=== PATIENT | female | born 1940 | race Caucasian/White ===

== ENCOUNTER 2023-02-17 19:03 | Inpatient (IN) | payer OTHER, MEDICAID ==
[~2023-02-17] VITALS: Ht 162.6 cm; Wt 83.5 kg
[2023-02-17 19:03] VITALS: BP_SYST 114; PULSE 38; RESP 20; TEMP 97.3; O2SAT 98
[~2023-02-17 19:03] MED LIST: ALBMDI INH; APIX2.5T PO; BISA-79 PO; DEC4 PO; DILT30TA35 PO; DOCU-144 PO; GUAI-723 PO; INSU100V SQ; INSU100V9 SQ; LEVO-62 PO; LEVO25TA2 PO; LYR25 PO; METO25TA6 PO; MOM PO; SENN8.6T19 PO; TRAZ-251 PO; VITD400 PO
[2023-02-17] MEDS ORDERED: cefTRIAXone 1 GM IVPB PREMIX 50 ML IV ONE (19:15)
[2023-02-17] MEDS ORDERED: NS 1000 ML IV.SOLN IV ONE (19:15)
[2023-02-17 20:09] LABS: HEMATOCRIT 39.5 % (36-48); HEMOGLOBIN 12.6 g/dL (12.0-16.0); MEAN CORPUSCULAR HEMOGLOBIN 30 pg (27-31); MEAN CORPUSCULAR HGB CONC 32 % (32-36); MEAN CORPUSCULAR VOLUME 94 fL (79.0-98.0); PLATELET COUNT (AUTO) 70 K/uL (130-430); RED BLOOD CELL COUNT(AUTO) 4.19 MIL/uL (4.2-6.2); RED CELL DISTRIBUTION WIDTH 18.5 % (9.0-15.0); WHITE BLOOD COUNT (AUTO) 3.1 K/uL (4.8-10.8)
[2023-02-17 20:24] LABS: ALANINE AMINOTRANSFERASE 8 U/L (12-78); ALBUMIN 3.3 g/dL (3.4-4.8); ANION GAP 5 (5-15); ASPARTATE AMINOTRANSFERASE 26 U/L (10-37); CALCIUM 8.5 mg/dL (8.4-11.0); CARBON DIOXIDE 28 mmol/L (23-29); CHLORIDE 94 mmol/L (98-107); CREATININE 4.13 mg/dL (0.55-1.30); GLUCOSE 130 mg/dL (74-106); SODIUM SERUM 127 mmol/L (136-145); TOTAL BILIRUBIN 0.8 mg/dL (0.0-1.0); TOTAL PROTEIN, SERUM 8.2 g/dL (6.4-8.3); UREA NITROGEN, BLOOD 97 mg/dL (8-21)
[2023-02-17 20:29] LABS: POTASSIUM 7.6 mmol/L (3.5-5.1)
[2023-02-17] MEDS ORDERED: ATROPINE SULFATE 1 MG/10 ML SYRINGE IVP ONE (20:30)
[2023-02-17] MEDS ORDERED: CALCIUM CHLORIDE 1 GM/10 ML DISP.SYRIN (14 mEq Ca++/SYR) IV ONE (20:30)
[2023-02-17] MEDS ORDERED: SODIUM ZIRCONIUM CYCLOSILICATE 10 GM POWD.PACK PO ONE (20:30)
[2023-02-17] MEDS ORDERED: CALCIUM CHLORIDE 1 GM/10ML VIAL (13.6 mEq Ca++/VIAL) IV ONE (20:30)
[2023-02-17 21:08] LABS: ANION GAP 6 (5-15); CALCIUM 8.1 mg/dL (8.4-11.0); CARBON DIOXIDE 27 mmol/L (23-29); CHLORIDE 96 mmol/L (98-107); CREATININE 4.09 mg/dL (0.55-1.30); GLUCOSE 133 mg/dL (74-106); SODIUM SERUM 129 mmol/L (136-145); UREA NITROGEN, BLOOD 92 mg/dL (8-21)
[2023-02-17 21:34] LABS: ANISOCYTOSIS 1+; BAND % (MANUAL) 3 % (0-6); BASOPHILS % (MANUAL) 0 % (0-2); EOSINOPHILS % (MANUAL) 2 % (0-7); LYMPHOCYTES % (MANUAL) 12 % (20-46); MONOCYTES % (MANUAL) 11 % (0-11); PLATELET ESTIMATE DECREASED (ADEQUATE)
[2023-02-17 21:35] LABS: OVALOCYTES MODERATE; TARGET CELLS FEW; TEAR DROP CELLS FEW
[2023-02-17] MEDS ORDERED: FURO40TA5 PO (21:52)
[2023-02-17] MEDS ORDERED: GABA-529 PO (21:52)
[2023-02-17] MEDS ORDERED: NALOXONE HCL 0.4 MG/ML AMP (NARCAN) IVP PRN ×2 (22:00)
[2023-02-17] MEDS ORDERED: SODIUM POLYSTYRENE SULFONATE 15 GM/60 ML UDBTL PO ONE (22:00)
[2023-02-17] MEDS ORDERED: MAGNESIUM SULFATE 50 ML IV PRN (22:00)
[2023-02-17] MEDS ORDERED: ZOLPIDEM TARTRATE 5 MG TABLET PO PRN (22:00)
[2023-02-17] MEDS ORDERED: MORPHINE 2 MG/ML INJ. SYRINGE IVP PRN ×2 (22:00)
[2023-02-17] MEDS ORDERED: DEXTROSE 50% JECT 50 ML DISP.SYRIN IVP PRN (22:00)
[2023-02-17] MEDS ORDERED: DOCUSATE SODIUM 100 MG CAPSULE PO PRN (22:00)
[2023-02-17] MEDS ORDERED: LORazepam 2 MG/ML VIAL IVP PRN (22:00)
[2023-02-17] MEDS ORDERED: MUPIROCIN 2% TOPICAL OINTMENT 22 GM NS PRN (22:00)
[2023-02-17] MEDS ORDERED: POTASSIUM CHLORIDE 20 MEQ TAB.PRT.SR PO PRN (22:00)
[2023-02-17] MEDS ORDERED: ALBUTEROL MDI INHALATION 8 GM INH INH PRN (22:00)
[2023-02-17] MEDS ORDERED: ACETAMINOPHEN 325 MG TABLET PO PRN (22:00)
[2023-02-17] MEDS ORDERED: ONDANSETRON HCL 4 MG/2 ML VIAL IVP PRN (22:00)
[2023-02-17] MEDS ORDERED: ACET325T PO (22:15)
[2023-02-17] MEDS ORDERED: ACET-73 PO (22:16)
[2023-02-17] MEDS ORDERED: AMIO200T66 PO (22:16)
[2023-02-17] MEDS ORDERED: LEVO75TA7 PO (22:18)
[2023-02-17] MEDS: FUROSEMIDE 40 MG/4 ML VIAL IVP SCH (22:18)
[2023-02-17] MEDS ORDERED: PEG15DRO12 EACH EYE (22:20)
[2023-02-18] VITALS (8 sets, daily range): BP systolic 110–136; PULSE 35–52; RESP 16–20; TEMP 96.8–98.2; O2SAT 92–97
[2023-02-18] MEDS ORDERED: traZODone HCL 50 MG TABLET (DESYREL) PO PRN
[2023-02-18 04:49] LABS: HEMOGLOBIN A1C 6.92 % (<5.7)
[2023-02-18 04:53] LABS: BASOPHILS # (AUTO) 0.1 K/uL (0.0-0.2); BASOPHILS % (AUTO) 1.9 % (0.0-2.0); EOSINOPHILS % (AUTO) 0.9 % (0.0-4.0); HEMATOCRIT 38.7 % (36-48); HEMOGLOBIN 12.2 g/dL (12.0-16.0); LYMPHOCYTES # (AUTO) 0.4 K/uL (1.0-5.5); LYMPHOCYTES % (AUTO) 13.1 % (20.5-51.5); MEAN CORPUSCULAR HEMOGLOBIN 30 pg (27-31); MEAN CORPUSCULAR HGB CONC 32 % (32-36); MEAN CORPUSCULAR VOLUME 95 fL (79.0-98.0); MONOCYTES # (AUTO) 0.4 K/uL (0.0-1.0); NEUTROPHILS # (AUTO) 2.1 K/uL (1.8-7.7); NEUTROPHILS % (AUTO) 71.1 % (40.0-70.0); PLATELET COUNT (AUTO) 57 K/uL (130-430); RED BLOOD CELL COUNT(AUTO) 4.09 MIL/uL (4.2-6.2); RED CELL DISTRIBUTION WIDTH 18.4 % (9.0-15.0); WHITE BLOOD COUNT (AUTO) 2.9 K/uL (4.8-10.8)
[2023-02-18 05:03] LABS: ANION GAP 9 (5-15); CALCIUM 8.8 mg/dL (8.4-11.0); CARBON DIOXIDE 26 mmol/L (23-29); CHLORIDE 95 mmol/L (98-107); CREATININE 4.27 mg/dL (0.55-1.30); GLUCOSE 128 mg/dL (74-106); SODIUM SERUM 130 mmol/L (136-145); UREA NITROGEN, BLOOD 91 mg/dL (8-21)
[2023-02-18 05:18] LABS: POTASSIUM 6.3 mmol/L (3.5-5.1)
[2023-02-18] MEDS ORDERED: SODIUM POLYSTYRENE SULFONATE 15 GM/60 ML UDBTL PO ONE ×2 (06:45→07:15)
[2023-02-18] MEDS ORDERED: SODIUM ZIRCONIUM CYCLOSILICATE 10 GM POWD.PACK PO ONE ×2 (07:15→15:00)
[2023-02-18] MEDS ORDERED: ALBUTEROL SULFATE 0.083% 2.5 MG/3 ML VIAL.NEB INH PRN (07:15)
[2023-02-18] MEDS: FUROSEMIDE 40 MG/4 ML VIAL IVP SCH (08:03)
[2023-02-18] MEDS ORDERED: APIXABAN 2.5 MG TABLET PO SCH (09:00)
[2023-02-18 11:56] LABS: BLOOD GAS PH 7.271 (7.350-7.450)
[2023-02-18 11:57] LABS: ABG O2 SAT% ESTIMATE 89.4 % (94.0-100.0); ALLEN'S TEST POSITIVE (P); BLOOD GAS HCO3 24.7 mmol/L (21.0-27.0); BLOOD GAS PCO2 54.9 mmHg (35.0-45.0); BLOOD GAS PO2 64.5 mmHg (75.0-100.0)
[2023-02-18 13:54] LABS: ANION GAP 4 (5-15); CALCIUM 8.7 mg/dL (8.4-11.0); CARBON DIOXIDE 29 mmol/L (23-29); CHLORIDE 98 mmol/L (98-107); CREATININE 4.32 mg/dL (0.55-1.30); FREE T4 (FREE THYROXINE) 0.8 ng/dl (0.8-1.5); GLUCOSE 146 mg/dL (74-106); SODIUM SERUM 131 mmol/L (136-145); THYROID STIMULATING HORMONE 14.78 uIu/mL (0.36-3.74); UREA NITROGEN, BLOOD 91 mg/dL (8-21)
[2023-02-18] MEDS ORDERED: ROPI0.5T4 PO (17:02)
[2023-02-18] MEDS ORDERED: FLUTICASONE PROPIONATE 50 mCg/SPRAY 16 GM NS ONE (18:30)
[2023-02-18] MEDS: FLUTICASONE PROPIONATE 50 mCg/SPRAY 16 GM NS SCH (20:25)
[2023-02-18] MEDS: roPINIRole HCL 0.25 MG ( REQUIP )TABLET PO SCH (20:26)
[2023-02-18] MEDS: traZODone HCL 50 MG TABLET (DESYREL) PO SCH (20:27)
[2023-02-18] MEDS ORDERED: THEOPHYLLINE ANHYDROUS 200 MG CAP.ER.24H PO SCH (21:00)
[2023-02-19] VITALS (8 sets, daily range): BP systolic 100–123; PULSE 47–53; RESP 13–18; TEMP 97.1–98.8; O2SAT 94–100
[2023-02-19 05:21] LABS: BASOPHILS % (AUTO) 1.3 % (0.0-2.0); EOSINOPHILS # (AUTO) 0.1 K/uL (0.0-0.4); EOSINOPHILS % (AUTO) 2.8 % (0.0-4.0); HEMATOCRIT 38.7 % (36-48); HEMOGLOBIN 12.2 g/dL (12.0-16.0); LYMPHOCYTES # (AUTO) 0.4 K/uL (1.0-5.5); LYMPHOCYTES % (AUTO) 15.3 % (20.5-51.5); MEAN CORPUSCULAR HEMOGLOBIN 30 pg (27-31); MEAN CORPUSCULAR HGB CONC 32 % (32-36); MEAN CORPUSCULAR VOLUME 96 fL (79.0-98.0); MONOCYTES # (AUTO) 0.4 K/uL (0.0-1.0); MONOCYTES % (AUTO) 14.5 % (1.7-9.3); NEUTROPHILS # (AUTO) 1.8 K/uL (1.8-7.7); NEUTROPHILS % (AUTO) 66.1 % (40.0-70.0); PLATELET COUNT (AUTO) 53 K/uL (130-430); RED BLOOD CELL COUNT(AUTO) 4.05 MIL/uL (4.2-6.2); WHITE BLOOD COUNT (AUTO) 2.7 K/uL (4.8-10.8)
[2023-02-19 05:30] LABS: ANION GAP 7 (5-15); CALCIUM 8.3 mg/dL (8.4-11.0); CARBON DIOXIDE 30 mmol/L (23-29); CHLORIDE 99 mmol/L (98-107); CREATININE 4.15 mg/dL (0.55-1.30); GLUCOSE 113 mg/dL (74-106); POTASSIUM 5.1 mmol/L (3.5-5.1); SODIUM SERUM 136 mmol/L (136-145); UREA NITROGEN, BLOOD 87 mg/dL (8-21)
[2023-02-19 05:35] LABS: ALANINE AMINOTRANSFERASE 3 U/L (12-78); ALBUMIN 3.2 g/dL (3.4-4.8); ASPARTATE AMINOTRANSFERASE 17 U/L (10-37); CHOLESTEROL 133 mg/dL (<200); HDL CHOLESTEROL 78 mg/dL (>55); LIPASE 32 U/L (73-393); TOTAL BILIRUBIN 0.7 mg/dL (0.0-1.0); TOTAL PROTEIN, SERUM 7.4 g/dL (6.4-8.3); TRIGLYCERIDES 60 mg/dL (30-150)
[2023-02-19] MEDS: LEVOTHYROXINE SODIUM 0.1 MG TABLET PO SCH (08:35)
[2023-02-19] MEDS: roPINIRole HCL 0.25 MG ( REQUIP )TABLET PO SCH ×4 (08:36→21:37)
[2023-02-19] MEDS: FLUTICASONE PROPIONATE 50 mCg/SPRAY 16 GM NS SCH ×2 (08:38→21:00)
[2023-02-19] MEDS: FUROSEMIDE 40 MG/4 ML VIAL IVP SCH (09:00)
[2023-02-19 09:49] LABS: BLOOD GAS PH 7.311 (7.350-7.450)
[2023-02-19 09:50] LABS: ABG O2 SAT% ESTIMATE 92.1 % (94.0-100.0); ALLEN'S TEST POSITIVE (P); BLOOD GAS BASE EXCESS 0.2 mmol/L (-3.0-3.0); BLOOD GAS HCO3 27.7 mmol/L (21.0-27.0); BLOOD GAS PCO2 56.1 mmHg (35.0-45.0); BLOOD GAS PO2 69.4 mmHg (75.0-100.0)
[2023-02-19] MEDS: INSULIN LISPRO SLIDING SCALE 100 UNITS/ML, 3 ML VIAL (humaLOG) SUBCUT PRN ×2 (12:25→21:38)
[2023-02-19] MEDS: THEOPHYLLINE ANHYDROUS 80 MG/15 ML UDC PO SCH ×2 (12:30→21:36)
[2023-02-19] MEDS: traZODone HCL 50 MG TABLET (DESYREL) PO SCH (21:36)
[2023-02-20 01:19] VITALS: BP_SYST 148; PULSE 55; RESP 18; TEMP 98.6; O2SAT 92
[2023-02-20 05:52] LABS: BASOPHILS % (AUTO) 1.2 % (0.0-2.0); EOSINOPHILS # (AUTO) 0.1 K/uL (0.0-0.4); EOSINOPHILS % (AUTO) 2.1 % (0.0-4.0); HEMATOCRIT 38.8 % (36-48); HEMOGLOBIN 12.3 g/dL (12.0-16.0); LYMPHOCYTES # (AUTO) 0.4 K/uL (1.0-5.5); LYMPHOCYTES % (AUTO) 13.3 % (20.5-51.5); MEAN CORPUSCULAR HEMOGLOBIN 30 pg (27-31); MEAN CORPUSCULAR HGB CONC 32 % (32-36); MEAN CORPUSCULAR VOLUME 94 fL (79.0-98.0); MONOCYTES # (AUTO) 0.4 K/uL (0.0-1.0); NEUTROPHILS # (AUTO) 2.2 K/uL (1.8-7.7); NEUTROPHILS % (AUTO) 71.4 % (40.0-70.0); PLATELET COUNT (AUTO) 62 K/uL (130-430); RED BLOOD CELL COUNT(AUTO) 4.11 MIL/uL (4.2-6.2); RED CELL DISTRIBUTION WIDTH 18.4 % (9.0-15.0)
[2023-02-20] MEDS: LEVOTHYROXINE SODIUM 0.1 MG TABLET PO SCH (06:01)
[2023-02-20 06:49] LABS: ALANINE AMINOTRANSFERASE 4 U/L (12-78); ANION GAP 7 (5-15); ASPARTATE AMINOTRANSFERASE 17 U/L (10-37); CALCIUM 8.5 mg/dL (8.4-11.0); CARBON DIOXIDE 31 mmol/L (23-29); CHLORIDE 97 mmol/L (98-107); CREATININE 3.94 mg/dL (0.55-1.30); GLUCOSE 110 mg/dL (74-106); POTASSIUM 4.8 mmol/L (3.5-5.1); SODIUM SERUM 135 mmol/L (136-145); TOTAL BILIRUBIN 0.6 mg/dL (0.0-1.0); TOTAL PROTEIN, SERUM 7.3 g/dL (6.4-8.3); UREA NITROGEN, BLOOD 82 mg/dL (8-21)
[2023-02-20 08:00] VITALS: BP_SYST 116; PULSE 67; RESP 18; TEMP 97.5; O2SAT 97
[2023-02-20] MEDS: roPINIRole HCL 0.25 MG ( REQUIP )TABLET PO SCH (08:40)
[2023-02-20] MEDS: THEOPHYLLINE ANHYDROUS 80 MG/15 ML UDC PO SCH (08:40)
[2023-02-20] MEDS: FUROSEMIDE 40 MG/4 ML VIAL IVP SCH (08:40)
[2023-02-20] MEDS: FLUTICASONE PROPIONATE 50 mCg/SPRAY 16 GM NS SCH (08:45)
[2023-02-20 11:02] VITALS: BP_SYST 118; PULSE 66; RESP 18; TEMP 97.7; O2SAT 95
[2023-02-20 11:05] VITALS: BP_SYST 126; PULSE 64; RESP 16; TEMP 97.6; O2SAT 94
[2023-02-20 11:37] VITALS: BP_SYST 126; PULSE 64; RESP 16; TEMP 97.6; O2SAT 94
== END 2023-02-20 12:10 | DRG 291 ==
LOC: SED 19:03 → STU 21:30
PROVIDERS: ADMIT General Practice; ATTEND General Practice
DX: I13.0 Hypertensive heart and chronic kidney disease with heart failure and stage 1 through stage 4 chronic kidney disease, or unspecified chronic kidney disease (principal); I50.43 Acute on chronic combined systolic (congestive) and diastolic (congestive) heart failure; J96.00 Acute respiratory failure, unspecified whether with hypoxia or hypercapnia; E87.1 Hypo-osmolality and hyponatremia; N17.9 Acute kidney failure, unspecified; N18.4 Chronic kidney disease, stage 4 (severe); I48.20 Chronic atrial fibrillation, unspecified; I42.9 Cardiomyopathy, unspecified; R00.1 Bradycardia, unspecified; D69.6 Thrombocytopenia, unspecified; E03.9 Hypothyroidism, unspecified; E11.42 Type 2 diabetes mellitus with diabetic polyneuropathy; I25.10 Atherosclerotic heart disease of native coronary artery without angina pectoris; I36.1 Nonrheumatic tricuspid (valve) insufficiency; E87.5 Hyperkalemia; E66.9 Obesity, unspecified; I27.20 Pulmonary hypertension, unspecified; E11.22 Type 2 diabetes mellitus with diabetic chronic kidney disease; E11.65 Type 2 diabetes mellitus with hyperglycemia; Z79.4 Long term (current) use of insulin; Z79.01 Long term (current) use of anticoagulants; Z87.01 Personal history of pneumonia (recurrent); Z86.16 Personal history of COVID-19; Z68.31 Body mass index [BMI] 31.0-31.9, adult
CPT/HCPCS: 36415; 36600; 71045; 76770; 80048; 80053; 80061; 82800-TC; 82803; 82962; 83037; 83605; 83690; 83735; 83880; 84439; 84443; 84484; 85007; 85025; 85027; 86162; 87040; 87081; 93005; 93306; 94760; 96365; 96375; 99285; G0378; J0461; J0696; J1940; J2270; J2405; J7030; J7613

== ENCOUNTER 2023-10-30 17:10 | Inpatient (IN) | payer OTHER, MEDICAID ==
[~2023-10-30] VITALS: Ht 170.2 cm; Wt 69.4 kg
[~2023-10-30 17:10] MED LIST changes: +ACET-73 PO; +ACET325T PO; +AMIO200T66 PO; -APIX2.5T PO; -DILT30TA35 PO; +FURO40TA5 PO; +GABA-529 PO; +LEVO75TA7 PO; -METO25TA6 PO; +PEG15DRO12 EACH EYE; +ROPI0.5T37 PO
[2023-10-30 17:37] VITALS: BP_SYST 105; PULSE 65; RESP 18; TEMP 99.8; O2SAT 97
[2023-10-30] MEDS ORDERED: HYDR-4037 PO (18:45)
[2023-10-30] MEDS ORDERED: FURO-149 PO (18:45)
[2023-10-30] MEDS ORDERED: APIX2.5T PO (18:45)
[2023-10-30] MEDS ORDERED: METO-442 PO (18:45)
[2023-10-30] MEDS ORDERED: THEO300T45 PO (18:45)
[2023-10-30] MEDS ORDERED: LORA-259 PO (18:45)
[2023-10-30] MEDS ORDERED: INSU100V SUBCUT (18:45)
[2023-10-30] MEDS ORDERED: HYDR-3917 PO (18:45)
[2023-10-30] MEDS ORDERED: LEVO125T PO (18:45)
[2023-10-30] MEDS ORDERED: ISO10 PO (18:45)
[2023-10-30 19:00] LABS: BASOPHILS % (AUTO) 0.5 % (0.0-2.0); HEMATOCRIT 35.7 % (36-48); HEMOGLOBIN 12.3 g/dL (12.0-16.0); LYMPHOCYTES # (AUTO) 0.7 K/uL (1.0-5.5); LYMPHOCYTES % (AUTO) 7.8 % (20.5-51.5); MEAN CORPUSCULAR HEMOGLOBIN 31 pg (27-31); MEAN CORPUSCULAR HGB CONC 34 % (32-36); MEAN CORPUSCULAR VOLUME 90 fL (79.0-98.0); MONOCYTES # (AUTO) 0.8 K/uL (0.0-1.0); MONOCYTES % (AUTO) 8.9 % (1.7-9.3); NEUTROPHILS # (AUTO) 7.3 K/uL (1.8-7.7); NEUTROPHILS % (AUTO) 82.8 % (40.0-70.0); PLATELET COUNT (AUTO) 106 K/uL (130-430); RED BLOOD CELL COUNT(AUTO) 3.98 MIL/uL (4.2-6.2); RED CELL DISTRIBUTION WIDTH 13.3 % (9.0-15.0); WHITE BLOOD COUNT (AUTO) 8.8 K/uL (4.8-10.8)
[2023-10-30] MEDS: NACL 0.9% 1,000 ML IV ONE (19:12)
[2023-10-30 19:15] LABS: ALBUMIN 2.8 g/dL (3.4-4.8); ANION GAP 4 (5-15); ASPARTATE AMINOTRANSFERASE 20 U/L (10-37); CALCIUM 9.1 mg/dL (8.4-11.0); CARBON DIOXIDE 32 mmol/L (23-29); CHLORIDE 94 mmol/L (98-107); CREATININE 3.34 mg/dL (0.55-1.30); GLUCOSE 183 mg/dL (74-106); INR 1.2 (0.8-1.2); SODIUM SERUM 130 mmol/L (136-145); TOTAL BILIRUBIN 0.6 mg/dL (0.0-1.0); TOTAL PROTEIN, SERUM 9.6 g/dL (6.4-8.3); UREA NITROGEN, BLOOD 89 mg/dL (8-21)
[2023-10-30 19:18] LABS: BILIRUBIN,DIRECT 0.2 mg/dL (0.0-0.3)
[2023-10-30 19:29] LABS: ALANINE AMINOTRANSFERASE 14 U/L (12-78)
[2023-10-30 20:41] LABS: INFLUENZA TYPE A Negative (NEGATIVE); INFLUENZA TYPE B NEGATIVE (NEGATIVE)
[2023-10-30 20:43] LABS: COVID19 ANTIGEN SOFIA FIA NEGATIVE (NEGATIVE)
[2023-10-30] MEDS: NORMAL SALINE 5 ML DISP.SYRIN IVF SCH (22:00)
[2023-10-30] MEDS ORDERED: METOPROLOL TARTRATE 25 MG TABLET ONE (22:44)
[2023-10-30] MEDS ORDERED: cloNIDine HCL 0.1 MG TABLET ONE (22:44)
[2023-10-30] MEDS ORDERED: METOPROLOL SUCCINATE 25 MG TAB.SR.24H (TOPROL XL) PO SCH (22:45)
[2023-10-30] MEDS: cloNIDine HCL 0.1 MG TABLET PO PRN (22:55)
[2023-10-30] MEDS ORDERED: DILTIAZEM HCL 30 MG TABLET ONE (23:22)
[2023-10-30] MEDS: dilTIAZem HCL IVP 5 MG/ML VIAL IVP ONE (23:30)
[2023-10-31 00:31] VITALS: BP_SYST 148; PULSE 158; RESP 20; TEMP 99.3; O2SAT 96
[2023-10-31 07:31] LABS: BASOPHILS % (AUTO) 0.1 % (0.0-2.0); HEMATOCRIT 35.2 % (36-48); HEMOGLOBIN 11.8 g/dL (12.0-16.0); LYMPHOCYTES # (AUTO) 0.6 K/uL (1.0-5.5); LYMPHOCYTES % (AUTO) 5.8 % (20.5-51.5); MEAN CORPUSCULAR HEMOGLOBIN 31 pg (27-31); MEAN CORPUSCULAR HGB CONC 34 % (32-36); MEAN CORPUSCULAR VOLUME 91 fL (79.0-98.0); MONOCYTES % (AUTO) 8.7 % (1.7-9.3); NEUTROPHILS # (AUTO) 9.5 K/uL (1.8-7.7); NEUTROPHILS % (AUTO) 85.4 % (40.0-70.0); PLATELET COUNT (AUTO) 99 K/uL (130-430); RED BLOOD CELL COUNT(AUTO) 3.86 MIL/uL (4.2-6.2); RED CELL DISTRIBUTION WIDTH 13.3 % (9.0-15.0); WHITE BLOOD COUNT (AUTO) 11.1 K/uL (4.8-10.8)
[2023-10-31 08:00] VITALS: BP_SYST 91; PULSE 131; RESP 16; TEMP 98.1; O2SAT 95; O2SAT 96
[2023-10-31 08:05] LABS: ALANINE AMINOTRANSFERASE 17 U/L (12-78); ALBUMIN 2.5 g/dL (3.4-4.8); ANION GAP 8 (5-15); ASPARTATE AMINOTRANSFERASE 29 U/L (10-37); CALCIUM 8.7 mg/dL (8.4-11.0); CARBON DIOXIDE 27 mmol/L (23-29); CHLORIDE 94 mmol/L (98-107); CHOLESTEROL 90 mg/dL (<200); CREATININE 3.61 mg/dL (0.55-1.30); GLUCOSE 156 mg/dL (74-106); HDL CHOLESTEROL 56 mg/dL (>55); POTASSIUM 4.1 mmol/L (3.5-5.1); SODIUM SERUM 129 mmol/L (136-145); THYROID STIMULATING HORMONE 0.19 uIu/mL (0.34-4.82); TOTAL BILIRUBIN 0.5 mg/dL (0.0-1.0); TOTAL PROTEIN, SERUM 8.7 g/dL (6.4-8.3); TRIGLYCERIDES 30 mg/dL (30-150); UREA NITROGEN, BLOOD 93 mg/dL (8-21)
[2023-10-31] MEDS ORDERED: traZODone HCL 50 MG TABLET (DESYREL) PO PRN (08:45)
[2023-10-31] MEDS: APIXABAN 2.5 MG TABLET PO SCH (08:48)
[2023-10-31] MEDS: AMIODARONE HCL 200 MG TABLET PO SCH (08:49)
[2023-10-31] MEDS: FUROSEMIDE 40 MG TABLET PO SCH (08:55)
[2023-10-31] MEDS ORDERED: METOPROLOL SUCCINATE 25 MG TAB.SR.24H (TOPROL XL) PO SCH (09:00)
[2023-10-31] MEDS: PEG 400/HYPROMELLOSE/GLYCERIN 15 ML DROPS EACH EYE SCH (09:27)
[2023-10-31] MEDS: METOPROLOL SUCCINATE 50 MG TAB.SR.24H (TOPROL XL) PO SCH (11:26)
[2023-10-31] MEDS ORDERED: ROPI1TAB46 PO (12:00)
[2023-10-31] MEDS ORDERED: THEO200C4 PO (12:00)
[2023-10-31] MEDS ORDERED: BISA10SU61 RC (12:00)
[2023-10-31] MEDS ORDERED: NEU300 PO (12:00)
[2023-10-31] MEDS: AMIODARONE HCL 200 MG TABLET PO ONE (14:20)
[2023-10-31] MEDS ORDERED: GLUCOSE (DEXTROSE) ORAL GEL -Adults PO PRN (16:30)
[2023-10-31] MEDS ORDERED: D5W 1,000 ML IV PRN (16:30)
[2023-10-31] MEDS ORDERED: DEXTROSE 50% JECT 50 ML DISP.SYRIN IVP PRN (16:30)
[2023-10-31] MEDS: cefTRIAXone 1 GM in D5W 50 ML IV SCH (18:13)
[2023-10-31] MEDS: NACL 0.9% 1,000 ML IV SCH ×2 (18:14→21:04)
[2023-10-31 20:00] VITALS: BP_SYST 83; PULSE 70; RESP 16; TEMP 99.5; O2SAT 96; O2SAT 97
[2023-10-31 21:00] VITALS: BP_SYST 95; PULSE 82
[2023-10-31] MEDS: DOXYCYCLINE HYCLATE 100 MG in D5W 100 ML IV SCH (21:02)
[2023-10-31] MEDS: GABAPENTIN 300 MG CAPSULE PO SCH (21:02)
[2023-10-31] MEDS: ALBUMIN HUMAN 25% 100 ML IV ONE (22:18)
[2023-11-01 00:47] VITALS: BP_SYST 114; PULSE 67; RESP 16; TEMP 97.7; O2SAT 97
[2023-11-01 05:44] LABS: BASOPHILS % (AUTO) 0.3 % (0.0-2.0); EOSINOPHILS % (AUTO) 0.1 % (0.0-4.0); HEMATOCRIT 34.8 % (36-48); HEMOGLOBIN 11.8 g/dL (12.0-16.0); LYMPHOCYTES # (AUTO) 0.2 K/uL (1.0-5.5); LYMPHOCYTES % (AUTO) 1.9 % (20.5-51.5); MEAN CORPUSCULAR HEMOGLOBIN 31 pg (27-31); MEAN CORPUSCULAR HGB CONC 34 % (32-36); MEAN CORPUSCULAR VOLUME 91 fL (79.0-98.0); MONOCYTES # (AUTO) 0.2 K/uL (0.0-1.0); MONOCYTES % (AUTO) 1.9 % (1.7-9.3); NEUTROPHILS # (AUTO) 10.1 K/uL (1.8-7.7); NEUTROPHILS % (AUTO) 95.8 % (40.0-70.0); PLATELET COUNT (AUTO) 94 K/uL (130-430); RED BLOOD CELL COUNT(AUTO) 3.82 MIL/uL (4.2-6.2); RED CELL DISTRIBUTION WIDTH 13.4 % (9.0-15.0); WHITE BLOOD COUNT (AUTO) 10.5 K/uL (4.8-10.8)
[2023-11-01 06:28] LABS: ALANINE AMINOTRANSFERASE 15 U/L (12-78); ANION GAP 12 (5-15); ASPARTATE AMINOTRANSFERASE 39 U/L (10-37); CARBON DIOXIDE 25 mmol/L (23-29); CHLORIDE 90 mmol/L (98-107); CREATININE 4.28 mg/dL (0.55-1.30); GLUCOSE 154 mg/dL (74-106); POTASSIUM 4.1 mmol/L (3.5-5.1); SODIUM SERUM 127 mmol/L (136-145); THYROID STIMULATING HORMONE 0.28 uIu/mL (0.34-4.82); TOTAL BILIRUBIN 0.8 mg/dL (0.0-1.0); TOTAL PROTEIN, SERUM 9.3 g/dL (6.4-8.3)
[2023-11-01 06:45] LABS: UREA NITROGEN, BLOOD 109 mg/dL (8-21)
[2023-11-01] MEDS ORDERED: LEVOTHYROXINE SODIUM 0.1 MG TABLET PO SCH (07:00)
[2023-11-01] MEDS ORDERED: LEVOTHYROXINE SODIUM 0.025 MG TABLET PO SCH (07:00)
[2023-11-01] MEDS: LEVOTHYROXINE SODIUM 0.125 MG TABLET PO SCH (07:04)
[2023-11-01 08:00] VITALS: BP_SYST 107; BP_SYST 114; PULSE 65; PULSE 70; RESP 15; RESP 20; TEMP 98.5; TEMP 98.6; O2SAT 93; O2SAT 96
[2023-11-01] MEDS: INSULIN REGULAR, HUMAN 100 UNITS/ML, 3 ML VIAL (humuLIN R) SUBCUT PRN (14:08)
[2023-11-01 14:47] LABS: FREE T4 (FREE THYROXINE) 1.8 ng/dL (0.6-1.6); URIC ACID 7.8 mg/dL (2.4-7.0)
[2023-11-01 16:00] VITALS: BP_SYST 105; PULSE 74; RESP 12; TEMP 98.7; O2SAT 100
[2023-11-01] MEDS: SODIUM CHLORIDE 1,000 MG TABLET PO ONE (17:14)
[2023-11-01] MEDS: SEVELAMER CARBONATE 800 MG TABLET PO SCH (17:18)
[2023-11-01 20:03] LABS: BILIRUBIN,URINE NEGATIVE (NEGATIVE); BLOOD, URINE 3+ (NEGATIVE); CLARITY/URINE CLOUDY (CLEAR); GLUCOSE,URINE NEGATIVE (NEGATIVE); KETONES,URINE NEGATIVE (NEGATIVE); LEUKOCYTE ESTERASE ,URINE 2+ (NEGATIVE); NITRITE, URINE NEGATIVE (NEGATIVE); PROTEIN URINE 2+ (NEGATIVE); UROBILINOGEN,URINE 0.2 (0.2-1.0)
[2023-11-01 20:04] LABS: COLOR,URINE YELLOW (YELLOW); RBC,URINE 20-50 /HPF (0-3)
[2023-11-01 20:05] LABS: BACTERIA,URINE MANY /HPF (None Seen); MUCUS,URINE None Seen /LPF (None Seen); URINE AMORPHOUS URATE 3+ /HPF (None Seen); WBC,URINE >100 /HPF (0-3)
[2023-11-01 20:10] VITALS: BP_SYST 115; PULSE 75; RESP 16; TEMP 98.4; O2SAT 99
[2023-11-01] MEDS: SODIUM CHLORIDE 1,000 MG TABLET PO SCH (23:32)
[2023-11-02 00:10] VITALS: BP_SYST 122; PULSE 74; RESP 18; TEMP 98.2; O2SAT 100
[2023-11-02] MEDS: ACETAMINOPHEN 325 MG TABLET PO PRN (02:28)
[2023-11-02 04:20] LABS: URINE SODIUM, RANDOM 19 mmol/L (40-220)
[2023-11-02] MEDS: LEVOTHYROXINE SODIUM 0.1 MG TABLET PO SCH (06:37)
[2023-11-02 07:23] LABS: BASOPHILS % (AUTO) 0.1 % (0.0-2.0); EOSINOPHILS # (AUTO) 0.1 K/uL (0.0-0.4); EOSINOPHILS % (AUTO) 1.2 % (0.0-4.0); HEMATOCRIT 35.1 % (36-48); HEMOGLOBIN 11.8 g/dL (12.0-16.0); LYMPHOCYTES # (AUTO) 0.4 K/uL (1.0-5.5); LYMPHOCYTES % (AUTO) 4.2 % (20.5-51.5); MEAN CORPUSCULAR HEMOGLOBIN 31 pg (27-31); MEAN CORPUSCULAR HGB CONC 34 % (32-36); MEAN CORPUSCULAR VOLUME 91 fL (79.0-98.0); MONOCYTES # (AUTO) 0.6 K/uL (0.0-1.0); MONOCYTES % (AUTO) 7.5 % (1.7-9.3); NEUTROPHILS # (AUTO) 7.3 K/uL (1.8-7.7); PLATELET COUNT (AUTO) 96 K/uL (130-430); RED BLOOD CELL COUNT(AUTO) 3.86 MIL/uL (4.2-6.2); RED CELL DISTRIBUTION WIDTH 13.2 % (9.0-15.0); WHITE BLOOD COUNT (AUTO) 8.4 K/uL (4.8-10.8)
[2023-11-02 07:30] VITALS: BP_SYST 128; PULSE 61; RESP 16; TEMP 97.8; O2SAT 100
[2023-11-02 07:42] LABS: ANION GAP 11 (5-15); CALCIUM 8.8 mg/dL (8.4-11.0); CARBON DIOXIDE 24 mmol/L (23-29); CHLORIDE 91 mmol/L (98-107); CREATININE 4.13 mg/dL (0.55-1.30); GLUCOSE 134 mg/dL (74-106); POTASSIUM 3.6 mmol/L (3.5-5.1); SODIUM SERUM 126 mmol/L (136-145)
[2023-11-02 07:45] LABS: UREA NITROGEN, BLOOD 117 mg/dL (8-21)
[2023-11-02 09:00] VITALS: O2SAT 100
[2023-11-02 11:10] VITALS: BP_SYST 108; PULSE 75; RESP 16; TEMP 96.7; O2SAT 94
[2023-11-02 15:43] VITALS: BP_SYST 131; PULSE 65; RESP 16; TEMP 97.8; O2SAT 99
[2023-11-02 19:55] VITALS: BP_SYST 118; PULSE 75; RESP 18; TEMP 97.9; O2SAT 99
[2023-11-03 01:10] VITALS: BP_SYST 140; PULSE 71; RESP 16; TEMP 97.4; O2SAT 97
[2023-11-03 08:00] VITALS: BP_SYST 114; PULSE 67; RESP 18; TEMP 97.2; O2SAT 99
[2023-11-03 08:31] LABS: ALANINE AMINOTRANSFERASE 15 U/L (12-78); ALBUMIN 2.4 g/dL (3.4-4.8); ANION GAP 10 (5-15); ASPARTATE AMINOTRANSFERASE 23 U/L (10-37); CALCIUM 8.9 mg/dL (8.4-11.0); CARBON DIOXIDE 24 mmol/L (23-29); CHLORIDE 96 mmol/L (98-107); CREATININE 3.57 mg/dL (0.55-1.30); GLUCOSE 119 mg/dL (74-106); POTASSIUM 3.5 mmol/L (3.5-5.1); SODIUM SERUM 130 mmol/L (136-145); TOTAL BILIRUBIN 0.3 mg/dL (0.0-1.0); TOTAL PROTEIN, SERUM 8.1 g/dL (6.4-8.3)
[2023-11-03 08:43] LABS: UREA NITROGEN, BLOOD 106 mg/dL (8-21)
[2023-11-03 10:20] VITALS: O2SAT 97
[2023-11-03 12:01] VITALS: BP_SYST 118; PULSE 69; RESP 17; TEMP 97.5; O2SAT 93
[2023-11-03 14:02] VITALS: BP_SYST 114; PULSE 67; RESP 18; TEMP 97; O2SAT 99
[2023-11-04 09:06] LABS: CREATININE, URINE 62.3 mg/dL (Not Estab.); MICROALBUMIN URINE RANDOM 361.4 ug/mL (Not Estab.)
== END 2023-11-03 14:48 | DRG 177 ==
LOC: SED 17:10 → STU 21:44
PROVIDERS: ADMIT Internal Medicine; ATTEND General Practice
DX: J69.0 Pneumonitis due to inhalation of food and vomit (principal); I21.4 Non-ST elevation (NSTEMI) myocardial infarction; N17.0 Acute kidney failure with tubular necrosis; E87.1 Hypo-osmolality and hyponatremia; N18.5 Chronic kidney disease, stage 5; I13.2 Hypertensive heart and chronic kidney disease with heart failure and with stage 5 chronic kidney disease, or end stage renal disease; N12 Tubulo-interstitial nephritis, not specified as acute or chronic; T50.2X5A Adverse effect of carbonic-anhydrase inhibitors, benzothiadiazides and other diuretics, initial encounter; I50.9 Heart failure, unspecified; I48.0 Paroxysmal atrial fibrillation; I27.20 Pulmonary hypertension, unspecified; I07.1 Rheumatic tricuspid insufficiency; F32.A Depression, unspecified; Z20.822 Contact with and (suspected) exposure to COVID-19; E86.0 Dehydration; E11.40 Type 2 diabetes mellitus with diabetic neuropathy, unspecified; E11.22 Type 2 diabetes mellitus with diabetic chronic kidney disease; E03.9 Hypothyroidism, unspecified; D69.6 Thrombocytopenia, unspecified; N28.9 Disorder of kidney and ureter, unspecified; N30.90 Cystitis, unspecified without hematuria; D72.829 Elevated white blood cell count, unspecified; Z79.4 Long term (current) use of insulin; Z79.01 Long term (current) use of anticoagulants; Z74.01 Bed confinement status; Z79.899 Other long term (current) drug therapy; Y92.89 Other specified places as the place of occurrence of the external cause; Z68.20 Body mass index [BMI] 20.0-20.9, adult
CPT/HCPCS: 36415; 70450-TC; 71045; 76770; 80048; 80053; 80061; 80076; 81000; 81001; 81015; 82043; 82533; 82570; 82948; 83605; 83735; 83880; 83930; 83935; 84100; 84302; 84439; 84443; 84484; 84550; 85025; 85610; 85730; 87040; 87081; 87086; 87186; 93005; 93306; 96360; 96361; 99285; G0378; J0696; J1815; J3490; J7060

== ENCOUNTER 2023-11-13 22:37 | Inpatient (IN) | payer OTHER, MEDICAID ==
[~2023-11-13] VITALS: Ht 162.6 cm; Wt 76.7 kg
[2023-11-13 22:37] VITALS: BP_SYST 95; PULSE 72; RESP 21; TEMP 97.6; O2SAT 98
[~2023-11-13 22:37] MED LIST changes: -ALBMDI INH; -AMIO200T66 PO; +APIX2.5T PO; -BISA-79 PO; +BISA10SU61 RC; -DEC4 PO; +FURO-149 PO; -FURO40TA5 PO; -GABA-529 PO; -GUAI-723 PO; +HYDR-2923 PO; +HYDR-3917 PO; -INSU100V SQ; +INSU100V SUBCUT; -INSU100V9 SQ; +ISO10 PO; -LEVO-62 PO; +LEVO125T PO; -LEVO25TA2 PO; -LEVO75TA7 PO; +LORA-259 PO; +METO-442 PO; +NEU300 PO; -PEG15DRO12 EACH EYE; -ROPI0.5T37 PO; +ROPI1TAB46 PO; +THEO200C4 PO
[2023-11-13] MEDS ORDERED: iohexoL 350 mgI/mL, 100 ML INFUS..BTL IV ONE (22:49)
[2023-11-14] VITALS (11 sets, daily range): BP systolic 79–149; PULSE 74–115; RESP 15–17; TEMP 98.5; O2SAT 98–100
[2023-11-14 00:33] LABS: BASOPHILS % (AUTO) 0.3 % (0.0-2.0); EOSINOPHILS % (AUTO) 0.2 % (0.0-4.0); HEMATOCRIT 28.9 % (36-48); HEMOGLOBIN 9.8 g/dL (12.0-16.0); LYMPHOCYTES # (AUTO) 0.7 K/uL (1.0-5.5); LYMPHOCYTES % (AUTO) 5.5 % (20.5-51.5); MEAN CORPUSCULAR HEMOGLOBIN 30 pg (27-31); MEAN CORPUSCULAR HGB CONC 34 % (32-36); MEAN CORPUSCULAR VOLUME 89 fL (79.0-98.0); MONOCYTES # (AUTO) 0.6 K/uL (0.0-1.0); MONOCYTES % (AUTO) 4.8 % (1.7-9.3); NEUTROPHILS # (AUTO) 11.5 K/uL (1.8-7.7); NEUTROPHILS % (AUTO) 89.2 % (40.0-70.0); PLATELET COUNT (AUTO) 150 K/uL (130-430); RED BLOOD CELL COUNT(AUTO) 3.25 MIL/uL (4.2-6.2); RED CELL DISTRIBUTION WIDTH 13.4 % (9.0-15.0); WHITE BLOOD COUNT (AUTO) 12.9 K/uL (4.8-10.8)
[2023-11-14] MEDS: NACL 0.9% 1,000 ML IV ONE ×2 (00:36→00:42)
[2023-11-14 00:44] LABS: ANION GAP 9 (5-15); CALCIUM 7.8 mg/dL (8.4-11.0); CARBON DIOXIDE 26 mmol/L (23-29); CHLORIDE 92 mmol/L (98-107); CREATININE 4.98 mg/dL (0.55-1.30); GLUCOSE 149 mg/dL (74-106); SODIUM SERUM 127 mmol/L (136-145); UREA NITROGEN, BLOOD 94 mg/dL (8-21)
[2023-11-14 00:52] LABS: LIPASE 26 U/L (16-77)
[2023-11-14] MEDS ORDERED: CEFEPIME 2 GM/VIAL (MAXIPIME) ONE (01:14)
[2023-11-14 01:20] LABS: INR 1.2 (0.8-1.2); PROTHROMBIN TIME 12.4 SECS (9.5-12.5)
[2023-11-14 01:24] LABS: HEMOGLOBIN A1C 7.02 % (<5.7)
[2023-11-14] MEDS: CEFEPIME 2 GM in D5W 100 ML IV ONE (01:47)
[2023-11-14 02:04] LABS: BILIRUBIN,URINE NEGATIVE (NEGATIVE); BLOOD, URINE 2+ (NEGATIVE); CLARITY/URINE SL CLOUDY (CLEAR); COLOR,URINE YELLOW (YELLOW); GLUCOSE,URINE NEGATIVE (NEGATIVE); KETONES,URINE NEGATIVE (NEGATIVE); LEUKOCYTE ESTERASE ,URINE 2+ (NEGATIVE); NITRITE, URINE POSITIVE (NEGATIVE); PROTEIN URINE 2+ (NEGATIVE); UROBILINOGEN,URINE 0.2 (0.2-1.0)
[2023-11-14 02:21] LABS: BACTERIA,URINE MANY /HPF (None Seen); WBC,URINE >100 /HPF (0-3)
[2023-11-14 03:05] LABS: BARBITURATE, URINE NEGATIVE (NEG <=200); BENZODIAZEPINE, URINE NEGATIVE (NEG <=150); CANNABINOID, URINE NEGATIVE (NEG <=50); COCAINE, URINE NEGATIVE (NEG <=150); METHAMPHETAMINES SCREEN,URINE NEGATIVE (NEG <=500); OPIATE, URINE POSITIVE (NEG <=100); PHENCYCLIDINE SCREEN,URINE NEGATIVE (NEG <=25); URINE AMPHETAMINE NEGATIVE (NEG <=500); URINE METHADONE NEGATIVE (NEG <=200); URINE OXYCODONE SCREEN NEGATIVE (NEG <=100)
[2023-11-14 03:06] LABS: UR TRICYCLIC ANTIDEPRESSANTS NEGATIVE (NEG <=300)
[2023-11-14] MEDS ORDERED: MORPHINE 2 MG/ML INJ. SYRINGE IVP PRN ×2 (07:45)
[2023-11-14] MEDS ORDERED: ONDANSETRON HCL 4 MG/2 ML VIAL IVP PRN (07:45)
[2023-11-14] MEDS ORDERED: MUPIROCIN 2% TOPICAL OINTMENT 22 GM NS PRN (07:45)
[2023-11-14] MEDS ORDERED: MAGNESIUM SULFATE 50 ML IV PRN (07:45)
[2023-11-14] MEDS ORDERED: DOCUSATE SODIUM 100 MG CAPSULE PO PRN (07:45)
[2023-11-14] MEDS ORDERED: NALOXONE HCL 0.4 MG/ML AMP (NARCAN) IVP PRN ×2 (07:45)
[2023-11-14] MEDS ORDERED: POTASSIUM CHLORIDE 20 MEQ TABLET.ER PO PRN (07:45)
[2023-11-14] MEDS ORDERED: LORazepam 2 MG/ML VIAL IVP PRN (07:45)
[2023-11-14 08:28] LABS: HEMOGLOBIN A1C 6.76 % (<5.7)
[2023-11-14] MEDS ORDERED: CEFTAZIDIME 1 GM in D5W 50 ML IV SCH (09:00)
[2023-11-14] MEDS: 0.45% NS 1,000 ML IV SCH (09:36)
[2023-11-14] MEDS ORDERED: TRAZ150T77 PO (10:01)
[2023-11-14] MEDS ORDERED: ACETAMINOPHEN 500 MG TABLET PO PRN ×3 (10:30)
[2023-11-14] MEDS: APIXABAN 2.5 MG TABLET PO ONE (11:29)
[2023-11-14] MEDS: CEFTAZIDIME 1 GM in D5W 50 ML IV SCH (12:19)
[2023-11-14] MEDS: CHOLECALCIFEROL (VITAMIN D-3) 400 UNIT TABLET PO ONE (12:21)
[2023-11-14 12:25] LABS: BARBITURATE, URINE NEGATIVE (NEG <=200); BENZODIAZEPINE, URINE NEGATIVE (NEG <=150); CANNABINOID, URINE NEGATIVE (NEG <=50); COCAINE, URINE NEGATIVE (NEG <=150); METHAMPHETAMINES SCREEN,URINE NEGATIVE (NEG <=500); OPIATE, URINE POSITIVE (NEG <=100); PHENCYCLIDINE SCREEN,URINE NEGATIVE (NEG <=25); UR TRICYCLIC ANTIDEPRESSANTS NEGATIVE (NEG <=300); URINE AMPHETAMINE NEGATIVE (NEG <=500); URINE METHADONE NEGATIVE (NEG <=200); URINE OXYCODONE SCREEN NEGATIVE (NEG <=100)
[2023-11-14] MEDS: ASPIRIN 81 MG TAB.CHEW PO ONE (12:36)
[2023-11-14] MEDS: AMIODARONE HCL 200 MG TABLET PO ONE (12:37)
[2023-11-14] MEDS ORDERED: INSULIN REGULAR, HUMAN 10 UNITS/0.1 ML, 3 ML VIAL ONE (13:29)
[2023-11-14] MEDS: INSULIN REGULAR, HUMAN 100 UNITS/ML, 3 ML VIAL (humuLIN R) SUBCUT PRN (13:30)
[2023-11-14] MEDS ORDERED: ISOSORBIDE DINITRATE 10 MG TABLET (ISORDIL) PO SCH (14:00)
[2023-11-14] MEDS ORDERED: hydrALAZINE HCL 10 MG TABLET PO SCH (14:00)
[2023-11-14] MEDS: ATORVASTATIN 20 MG TABLET PO ONE (14:15)
[2023-11-14] MEDS ORDERED: NOREPINEPHRINE BITARTRATE 4 MG in NS 246 ML IV PRN (15:45)
[2023-11-14 16:14] LABS: INR 1.3 (0.8-1.2); PROTHROMBIN TIME 12.9 SECS (9.5-12.5)
[2023-11-14] MEDS ORDERED: NOREPINEPHRINE 4 MG/4 ML VIAL IV ONE (16:25)
[2023-11-14] MEDS: NOREPINEPHRINE BITARTRATE 4 MG in D5W 246 ML IV PRN (16:39)
[2023-11-14] MEDS ORDERED: APIXABAN 2.5 MG TABLET PO SCH (21:00)
[2023-11-14] MEDS: AMIODARONE HCL 200 MG TABLET PO SCH (23:32)
[2023-11-15] VITALS (29 sets, daily range): BP systolic 66–155; PULSE 46–88; RESP 12–22; TEMP 98–98.5; O2SAT 96–100
[2023-11-15] MEDS: GABAPENTIN 300 MG CAPSULE PO SCH (00:53)
[2023-11-15] MEDS: traZODone HCL 50 MG TABLET (DESYREL) PO SCH (00:53)
[2023-11-15] MEDS: DOCUSATE SODIUM 100 MG CAPSULE PO SCH (00:53)
[2023-11-15 06:34] LABS: BASOPHILS % (AUTO) 0.4 % (0.0-2.0); EOSINOPHILS # (AUTO) 0.1 K/uL (0.0-0.4); EOSINOPHILS % (AUTO) 0.8 % (0.0-4.0); HEMOGLOBIN 9.7 g/dL (12.0-16.0); LYMPHOCYTES # (AUTO) 0.5 K/uL (1.0-5.5); LYMPHOCYTES % (AUTO) 4.5 % (20.5-51.5); MEAN CORPUSCULAR HEMOGLOBIN 30 pg (27-31); MEAN CORPUSCULAR HGB CONC 33 % (32-36); MEAN CORPUSCULAR VOLUME 90 fL (79.0-98.0); MONOCYTES # (AUTO) 0.6 K/uL (0.0-1.0); MONOCYTES % (AUTO) 5.3 % (1.7-9.3); NEUTROPHILS # (AUTO) 10.1 K/uL (1.8-7.7); PLATELET COUNT (AUTO) 110 K/uL (130-430); RED BLOOD CELL COUNT(AUTO) 3.21 MIL/uL (4.2-6.2); RED CELL DISTRIBUTION WIDTH 13.1 % (9.0-15.0); WHITE BLOOD COUNT (AUTO) 11.3 K/uL (4.8-10.8)
[2023-11-15] MEDS: LEVOTHYROXINE SODIUM 0.125 MG TABLET PO SCH (06:52)
[2023-11-15 07:45] LABS: ANION GAP 9 (5-15); CALCIUM 7.8 mg/dL (8.4-11.0); CARBON DIOXIDE 23 mmol/L (23-29); CHLORIDE 98 mmol/L (98-107); CREATININE 4.14 mg/dL (0.55-1.30); GLUCOSE 104 mg/dL (74-106); PHOSPHORUS 4.5 mg/dL (2.7-4.5); POTASSIUM 4.1 mmol/L (3.5-5.1); SODIUM SERUM 130 mmol/L (136-145); THYROID STIMULATING HORMONE 0.82 uIu/mL (0.34-4.82); UREA NITROGEN, BLOOD 82 mg/dL (8-21)
[2023-11-15] MEDS ORDERED: METOPROLOL TARTRATE 50 MG TABLET PO SCH (09:00)
[2023-11-15] MEDS: PREGABALIN 25 MG CAPSULE (LYRICA) PO SCH (09:00)
[2023-11-15] MEDS: ASPIRIN 81 MG TAB.CHEW PO SCH (10:26)
[2023-11-15] MEDS: CHOLECALCIFEROL (VITAMIN D-3) 400 UNIT TABLET PO SCH (10:27)
[2023-11-15] MEDS: ATORVASTATIN 20 MG TABLET PO SCH (10:30)
[2023-11-15] MEDS: DOXYCYCLINE HYCLATE 100 MG in D5W 100 ML IV SCH (10:31)
[2023-11-15] MEDS: MEROPENEM 500 MG in NS 50 ML IV SCH (10:31)
[2023-11-15] MEDS: DOPamine PREMIX 250 ML IV PRN (14:34)
[2023-11-15] MEDS: NACL 0.9% 1,000 ML IV SCH (14:47)
[2023-11-16] VITALS (31 sets, daily range): BP systolic 97–153; PULSE 56–83; RESP 11–26; TEMP 96.8–98.1; O2SAT 93–99
[2023-11-16] MEDS: ZOLPIDEM TARTRATE 5 MG TABLET PO PRN (00:38)
[2023-11-16 06:09] LABS: BASOPHILS % (AUTO) 0.4 % (0.0-2.0); EOSINOPHILS # (AUTO) 0.1 K/uL (0.0-0.4); EOSINOPHILS % (AUTO) 0.7 % (0.0-4.0); HEMATOCRIT 33.9 % (36-48); HEMOGLOBIN 11.3 g/dL (12.0-16.0); LYMPHOCYTES # (AUTO) 0.7 K/uL (1.0-5.5); LYMPHOCYTES % (AUTO) 9.4 % (20.5-51.5); MEAN CORPUSCULAR HEMOGLOBIN 30 pg (27-31); MEAN CORPUSCULAR HGB CONC 33 % (32-36); MEAN CORPUSCULAR VOLUME 91 fL (79.0-98.0); MONOCYTES # (AUTO) 0.8 K/uL (0.0-1.0); MONOCYTES % (AUTO) 9.8 % (1.7-9.3); NEUTROPHILS # (AUTO) 6.2 K/uL (1.8-7.7); NEUTROPHILS % (AUTO) 79.7 % (40.0-70.0); PLATELET COUNT (AUTO) 114 K/uL (130-430); RED BLOOD CELL COUNT(AUTO) 3.73 MIL/uL (4.2-6.2); RED CELL DISTRIBUTION WIDTH 13.6 % (9.0-15.0); WHITE BLOOD COUNT (AUTO) 7.8 K/uL (4.8-10.8)
[2023-11-16 06:23] LABS: ALANINE AMINOTRANSFERASE 2 U/L (12-78); ALBUMIN 2.2 g/dL (3.4-4.8); ANION GAP 9 (5-15); ASPARTATE AMINOTRANSFERASE 11 U/L (10-37); CALCIUM 8.4 mg/dL (8.4-11.0); CARBON DIOXIDE 22 mmol/L (23-29); CHLORIDE 99 mmol/L (98-107); CREATININE 3.96 mg/dL (0.55-1.30); GLUCOSE 156 mg/dL (74-106); PHOSPHORUS 4.8 mg/dL (2.7-4.5); POTASSIUM 4.3 mmol/L (3.5-5.1); SODIUM SERUM 130 mmol/L (136-145); TOTAL BILIRUBIN 0.3 mg/dL (0.0-1.0); TOTAL PROTEIN, SERUM 8.2 g/dL (6.4-8.3); UREA NITROGEN, BLOOD 75 mg/dL (8-21)
[2023-11-16 06:30] LABS: TOTAL IRON BIND. CAPACITY 150 ug/dL (250-450)
[2023-11-16 10:33] LABS: INR 1.2 (0.8-1.2); PROTHROMBIN TIME 11.9 SECS (9.5-12.5)
[2023-11-16 15:41] LABS: URINE SODIUM, RANDOM 43 mmol/L (40-220)
[2023-11-16] MEDS: HEPARIN SODIUM,PORCINE 5,000 UNITS/ML VIAL SUBCUT SCH (21:49)
[2023-11-17] VITALS (24 sets, daily range): BP systolic 96–132; PULSE 70–96; RESP 9–26; TEMP 96.8–97.2; O2SAT 93–100
[2023-11-17 05:09] LABS: EOSINOPHILS # (AUTO) 0.1 K/uL (0.0-0.4); LYMPHOCYTES # (AUTO) 0.8 K/uL (1.0-5.5)
[2023-11-17 05:56] LABS: ANION GAP 8 (5-15); CALCIUM 8.7 mg/dL (8.4-11.0); CARBON DIOXIDE 24 mmol/L (23-29); CHLORIDE 103 mmol/L (98-107); CREATININE 3.82 mg/dL (0.55-1.30); GLUCOSE 100 mg/dL (74-106); POTASSIUM 4.4 mmol/L (3.5-5.1); SODIUM SERUM 135 mmol/L (136-145); UREA NITROGEN, BLOOD 73 mg/dL (8-21)
[2023-11-17 05:57] LABS: BASOPHILS % (AUTO) 0.5 % (0.0-2.0); EOSINOPHILS % (AUTO) 1.5 % (0.0-4.0); HEMATOCRIT 33.2 % (36-48); HEMOGLOBIN 11.2 g/dL (12.0-16.0); LYMPHOCYTES % (AUTO) 11.9 % (20.5-51.5); MEAN CORPUSCULAR HEMOGLOBIN 31 pg (27-31); MEAN CORPUSCULAR HGB CONC 34 % (32-36); MEAN CORPUSCULAR VOLUME 91 fL (79.0-98.0); MONOCYTES # (AUTO) 0.6 K/uL (0.0-1.0); MONOCYTES % (AUTO) 8.6 % (1.7-9.3); NEUTROPHILS # (AUTO) 5.4 K/uL (1.8-7.7); NEUTROPHILS % (AUTO) 77.5 % (40.0-70.0); PLATELET COUNT (AUTO) 119 K/uL (130-430); RED BLOOD CELL COUNT(AUTO) 3.67 MIL/uL (4.2-6.2); RED CELL DISTRIBUTION WIDTH 13.4 % (9.0-15.0); WHITE BLOOD COUNT (AUTO) 6.9 K/uL (4.8-10.8)
[2023-11-18] VITALS (13 sets, daily range): BP systolic 110–151; PULSE 71–89; RESP 12–20; TEMP 96.8–98.9; O2SAT 92–100
[2023-11-18 03:06] LABS: CREATININE, URINE 39.7 mg/dL (Not Estab.); MICROALBUMIN URINE RANDOM 176.9 ug/mL (Not Estab.)
[2023-11-18 07:02] LABS: BASOPHILS % (AUTO) 1.2 % (0.0-2.0); EOSINOPHILS # (AUTO) 0.1 K/uL (0.0-0.4); EOSINOPHILS % (AUTO) 2.8 % (0.0-4.0); HEMATOCRIT 29.1 % (36-48); HEMOGLOBIN 9.6 g/dL (12.0-16.0); LYMPHOCYTES # (AUTO) 0.7 K/uL (1.0-5.5); LYMPHOCYTES % (AUTO) 18.4 % (20.5-51.5); MEAN CORPUSCULAR HEMOGLOBIN 30 pg (27-31); MEAN CORPUSCULAR HGB CONC 33 % (32-36); MEAN CORPUSCULAR VOLUME 91 fL (79.0-98.0); MONOCYTES # (AUTO) 0.6 K/uL (0.0-1.0); MONOCYTES % (AUTO) 14.9 % (1.7-9.3); NEUTROPHILS # (AUTO) 2.4 K/uL (1.8-7.7); NEUTROPHILS % (AUTO) 62.7 % (40.0-70.0); PLATELET COUNT (AUTO) 123 K/uL (130-430); RED CELL DISTRIBUTION WIDTH 13.7 % (9.0-15.0); WHITE BLOOD COUNT (AUTO) 3.8 K/uL (4.8-10.8)
[2023-11-18 08:24] LABS: ANION GAP 8 (5-15); CARBON DIOXIDE 23 mmol/L (23-29); CHLORIDE 108 mmol/L (98-107); POTASSIUM 4.4 mmol/L (3.5-5.1); SODIUM SERUM 139 mmol/L (136-145)
[2023-11-18 08:25] LABS: ALANINE AMINOTRANSFERASE 4 U/L (12-78); ALBUMIN 1.9 g/dL (3.4-4.8); ASPARTATE AMINOTRANSFERASE 10 U/L (10-37); CREATININE 3.33 mg/dL (0.55-1.30); GLUCOSE 90 mg/dL (74-106); PHOSPHORUS 4.5 mg/dL (2.7-4.5); TOTAL PROTEIN, SERUM 7.2 g/dL (6.4-8.3); UREA NITROGEN, BLOOD 66 mg/dL (8-21)
[2023-11-18 08:27] LABS: TOTAL BILIRUBIN 0.4 mg/dL (0.0-1.0)
[2023-11-18] MEDS: PANTOPRAZOLE SODIUM 40 MG/VIAL (PROTONIX) IVP ONE (17:30)
[2023-11-19 01:18] VITALS: BP_SYST 127; PULSE 82; RESP 17; TEMP 97.6; O2SAT 98
[2023-11-19 05:24] LABS: ANION GAP 5 (5-15); CARBON DIOXIDE 25 mmol/L (23-29); CHLORIDE 111 mmol/L (98-107); CREATININE 2.95 mg/dL (0.55-1.30); GLUCOSE 89 mg/dL (74-106); POTASSIUM 4.6 mmol/L (3.5-5.1); SODIUM SERUM 141 mmol/L (136-145); UREA NITROGEN, BLOOD 57 mg/dL (8-21)
[2023-11-19 05:55] LABS: BASOPHILS % (AUTO) 1.3 % (0.0-2.0); EOSINOPHILS # (AUTO) 0.1 K/uL (0.0-0.4); EOSINOPHILS % (AUTO) 2.9 % (0.0-4.0); HEMATOCRIT 28.6 % (36-48); HEMOGLOBIN 9.4 g/dL (12.0-16.0); LYMPHOCYTES # (AUTO) 0.8 K/uL (1.0-5.5); LYMPHOCYTES % (AUTO) 27.3 % (20.5-51.5); MEAN CORPUSCULAR HEMOGLOBIN 30 pg (27-31); MEAN CORPUSCULAR HGB CONC 33 % (32-36); MEAN CORPUSCULAR VOLUME 91 fL (79.0-98.0); MONOCYTES # (AUTO) 0.5 K/uL (0.0-1.0); MONOCYTES % (AUTO) 16.8 % (1.7-9.3); NEUTROPHILS # (AUTO) 1.6 K/uL (1.8-7.7); NEUTROPHILS % (AUTO) 51.7 % (40.0-70.0); PLATELET COUNT (AUTO) 123 K/uL (130-430); RED BLOOD CELL COUNT(AUTO) 3.13 MIL/uL (4.2-6.2); RED CELL DISTRIBUTION WIDTH 13.4 % (9.0-15.0); WHITE BLOOD COUNT (AUTO) 3.1 K/uL (4.8-10.8)
[2023-11-19 08:00] VITALS: BP_SYST 107; PULSE 87; RESP 20; TEMP 97.9; O2SAT 97
[2023-11-19] MEDS: PANTOPRAZOLE SODIUM 40 MG/VIAL (PROTONIX) IVP SCH (09:09)
[2023-11-19 10:15] VITALS: O2SAT 97
[2023-11-19 11:12] VITALS: BP_SYST 94; PULSE 83; RESP 15; TEMP 97.1; O2SAT 93
[2023-11-19 15:08] VITALS: BP_SYST 112; PULSE 81; RESP 16; TEMP 98.3; O2SAT 97
[2023-11-20 02:10] VITALS: BP_SYST 152; PULSE 76; RESP 17; TEMP 98.6; O2SAT 100
[2023-11-20 04:44] LABS: BASOPHILS % (AUTO) 1.1 % (0.0-2.0); EOSINOPHILS # (AUTO) 0.1 K/uL (0.0-0.4); EOSINOPHILS % (AUTO) 2.1 % (0.0-4.0); HEMATOCRIT 28.2 % (36-48); HEMOGLOBIN 9.4 g/dL (12.0-16.0); LYMPHOCYTES # (AUTO) 1.1 K/uL (1.0-5.5); LYMPHOCYTES % (AUTO) 24.9 % (20.5-51.5); MEAN CORPUSCULAR HEMOGLOBIN 30 pg (27-31); MEAN CORPUSCULAR HGB CONC 33 % (32-36); MEAN CORPUSCULAR VOLUME 90 fL (79.0-98.0); MONOCYTES # (AUTO) 0.6 K/uL (0.0-1.0); MONOCYTES % (AUTO) 14.6 % (1.7-9.3); NEUTROPHILS # (AUTO) 2.4 K/uL (1.8-7.7); NEUTROPHILS % (AUTO) 57.3 % (40.0-70.0); PLATELET COUNT (AUTO) 121 K/uL (130-430); RED BLOOD CELL COUNT(AUTO) 3.12 MIL/uL (4.2-6.2); RED CELL DISTRIBUTION WIDTH 13.9 % (9.0-15.0); WHITE BLOOD COUNT (AUTO) 4.2 K/uL (4.8-10.8)
[2023-11-20 04:49] LABS: ANION GAP 6 (5-15); CALCIUM 7.9 mg/dL (8.4-11.0); CARBON DIOXIDE 24 mmol/L (23-29); CHLORIDE 113 mmol/L (98-107); GLUCOSE 70 mg/dL (74-106); POTASSIUM 5.2 mmol/L (3.5-5.1); SODIUM SERUM 143 mmol/L (136-145); UREA NITROGEN, BLOOD 57 mg/dL (8-21)
[2023-11-20 05:15] LABS: INR 1.1 (0.8-1.2); PROTHROMBIN TIME 11.4 SECS (9.5-12.5)
[2023-11-20 08:00] VITALS: O2SAT 100
[2023-11-20] MEDS ORDERED: LIDOCAINE 1%, 20 ML MDV 20 ML ONE (09:10)
[2023-11-20 20:04] VITALS: BP_SYST 106; PULSE 76; RESP 18; TEMP 98; O2SAT 96
[2023-11-20 20:09] VITALS: O2SAT 96
[2023-11-20] MEDS: APIXABAN 2.5 MG TABLET PO SCH (21:58)
[2023-11-20] MEDS: SODIUM ZIRCONIUM CYCLOSILICATE 10 GM POWD.PACK PO ONE (22:07)
[2023-11-21 01:03] VITALS: BP_SYST 108; PULSE 67; RESP 17; TEMP 97.5; O2SAT 100
[2023-11-21 05:41] LABS: BASOPHILS # (AUTO) 0.1 K/uL (0.0-0.2); BASOPHILS % (AUTO) 1.1 % (0.0-2.0); EOSINOPHILS # (AUTO) 0.1 K/uL (0.0-0.4); EOSINOPHILS % (AUTO) 1.8 % (0.0-4.0); HEMATOCRIT 27.8 % (36-48); HEMOGLOBIN 9.2 g/dL (12.0-16.0); LYMPHOCYTES # (AUTO) 1.3 K/uL (1.0-5.5); LYMPHOCYTES % (AUTO) 26.2 % (20.5-51.5); MEAN CORPUSCULAR HEMOGLOBIN 30 pg (27-31); MEAN CORPUSCULAR HGB CONC 33 % (32-36); MEAN CORPUSCULAR VOLUME 92 fL (79.0-98.0); MONOCYTES # (AUTO) 0.7 K/uL (0.0-1.0); MONOCYTES % (AUTO) 14.8 % (1.7-9.3); NEUTROPHILS # (AUTO) 2.7 K/uL (1.8-7.7); NEUTROPHILS % (AUTO) 56.1 % (40.0-70.0); PLATELET COUNT (AUTO) 118 K/uL (130-430); RED BLOOD CELL COUNT(AUTO) 3.03 MIL/uL (4.2-6.2); RED CELL DISTRIBUTION WIDTH 13.8 % (9.0-15.0); WHITE BLOOD COUNT (AUTO) 4.9 K/uL (4.8-10.8)
[2023-11-21 06:06] LABS: ANION GAP 2 (5-15); CARBON DIOXIDE 27 mmol/L (23-29); CHLORIDE 111 mmol/L (98-107); CREATININE 2.62 mg/dL (0.55-1.30); GLUCOSE 91 mg/dL (74-106); POTASSIUM 5.7 mmol/L (3.5-5.1); SODIUM SERUM 140 mmol/L (136-145); UREA NITROGEN, BLOOD 59 mg/dL (8-21)
[2023-11-21 08:00] VITALS: BP_SYST 114; PULSE 49; RESP 16; TEMP 97.4; O2SAT 100
[2023-11-21] MEDS: SODIUM ZIRCONIUM CYCLOSILICATE 10 GM POWD.PACK PO ONE (08:00)
[2023-11-21] MEDS ORDERED: LIP20 PO (11:22)
[2023-11-21] MEDS ORDERED: FURO-150 PO (11:22)
[2023-11-21] MEDS ORDERED: TRAZ-250 PO (11:22)
[2023-11-21] MEDS ORDERED: SODI10PO PO (11:22)
[2023-11-21] MEDS ORDERED: ERTA1VIA3 INJ (11:22)
[2023-11-21 12:30] VITALS: BP_SYST 120; PULSE 67; RESP 18; TEMP 97.7; O2SAT 98
[2023-11-21 13:38] VITALS: BP_SYST 120; PULSE 67; RESP 18; TEMP 97.7; O2SAT 98
== END 2023-11-21 15:38 | DRG 871 ==
LOC: SED 22:37 → STU 11-14 02:34 → SIC 11-14 20:39 → STU 11-18 22:10
PROVIDERS: ADMIT General Practice; ATTEND General Practice
PROC: 4A00X4Z Measurement of Central Nervous Electrical Activity, External Approach (ICD-10-PCS; 2023-11-14)
PROC: 02HV33Z Insertion of Infusion Device into Superior Vena Cava, Percutaneous Approach (ICD-10-PCS; principal; 2023-11-16)
DX: A41.9 Sepsis, unspecified organism (principal); G93.41 Metabolic encephalopathy; R65.21 Severe sepsis with septic shock; J18.9 Pneumonia, unspecified organism; I13.0 Hypertensive heart and chronic kidney disease with heart failure and stage 1 through stage 4 chronic kidney disease, or unspecified chronic kidney disease; E87.1 Hypo-osmolality and hyponatremia; I50.32 Chronic diastolic (congestive) heart failure; J44.0 Chronic obstructive pulmonary disease with (acute) lower respiratory infection; N18.4 Chronic kidney disease, stage 4 (severe); N13.6 Pyonephrosis; Z16.12 Extended spectrum beta lactamase (ESBL) resistance; N17.9 Acute kidney failure, unspecified; E46 Unspecified protein-calorie malnutrition; E11.22 Type 2 diabetes mellitus with diabetic chronic kidney disease; E11.43 Type 2 diabetes mellitus with diabetic autonomic (poly)neuropathy; E11.65 Type 2 diabetes mellitus with hyperglycemia; D63.1 Anemia in chronic kidney disease; E87.5 Hyperkalemia; I65.23 Occlusion and stenosis of bilateral carotid arteries; B96.20 Unspecified Escherichia coli [E. coli] as the cause of diseases classified elsewhere; D69.6 Thrombocytopenia, unspecified; I48.0 Paroxysmal atrial fibrillation; F41.9 Anxiety disorder, unspecified; E03.9 Hypothyroidism, unspecified; Z79.01 Long term (current) use of anticoagulants; Z86.19 Personal history of other infectious and parasitic diseases; Z79.899 Other long term (current) drug therapy; Z68.29 Body mass index [BMI] 29.0-29.9, adult
CPT/HCPCS: 36415; 70450; 70496; 70498; 71045; 76770; 80048; 80053; 80307; 81000; 81001; 81015; 82043; 82570; 82948; 83037; 83540; 83550; 83605; 83690; 83735; 83880; 83930; 83935; 84100; 84302; 84443; 84484; 84550; 85025; 85610; 85730; 86886; 86900; 86901; 87040; 87081; 87086; 87186; 92610-GN; 93005; 95816; 97112-GP; 97116-GP; 97530-GP; 99291; C9113; J0692; J0713; J1265; J1644; J1815; J2001; J2185; J3490; J7060; Q9967

== ENCOUNTER 2024-02-16 19:13 | Inpatient (IN) | payer OTHER, MEDICAID ==
[~2024-02-16] VITALS: Ht 160 cm; Wt 71.0 kg
[~2024-02-16 19:13] MED LIST changes: -ACET-73 PO; +ERTA1VIA3 INJ; -FURO-149 PO; +FURO-150 PO; -ISO10 PO; +LIP20 PO; -LORA-259 PO; -METO-442 PO; -NEU300 PO; +SODI10PO PO; -THEO200C4 PO; +TRAZ-250 PO; -TRAZ-251 PO
[2024-02-16 19:15] VITALS: BP_SYST 137; PULSE 153; RESP 20; TEMP 101.9; O2SAT 92
[2024-02-16] MEDS: NS 1000 ML IV.SOLN IV ONE (19:49)
[2024-02-16] MEDS ORDERED: SILD25TA10 PO (20:00)
[2024-02-16] MEDS ORDERED: FURO-149 PO (20:00)
[2024-02-16] MEDS ORDERED: DABI150C PO (20:00)
[2024-02-16 20:19] LABS: ALANINE AMINOTRANSFERASE 9 U/L (12-78); ALBUMIN 2.6 g/dL (3.4-4.8); ANION GAP 8 (5-15); ASPARTATE AMINOTRANSFERASE 12 U/L (10-37); CALCIUM 8.7 mg/dL (8.4-11.0); CARBON DIOXIDE 23 mmol/L (23-29); CHLORIDE 103 mmol/L (98-107); CREATININE 2.67 mg/dL (0.55-1.30); GLUCOSE 117 mg/dL (74-106); POTASSIUM 5.4 mmol/L (3.5-5.1); SODIUM SERUM 134 mmol/L (136-145); TOTAL BILIRUBIN 0.4 mg/dL (0.0-1.0); TOTAL PROTEIN, SERUM 8.9 g/dL (6.4-8.3); UREA NITROGEN, BLOOD 53 mg/dL (8-21)
[2024-02-16 20:22] LABS: BILIRUBIN,DIRECT 0.1 mg/dL (0.0-0.3)
[2024-02-16 20:24] LABS: BASOPHILS % (AUTO) 0.5 % (0.0-2.0); EOSINOPHILS % (AUTO) 0.2 % (0.0-4.0); HEMOGLOBIN 9.3 g/dL (12.0-16.0); LYMPHOCYTES # (AUTO) 0.6 K/uL (1.0-5.5); LYMPHOCYTES % (AUTO) 7.2 % (20.5-51.5); MEAN CORPUSCULAR HEMOGLOBIN 30 pg (27-31); MEAN CORPUSCULAR HGB CONC 35 % (32-36); MEAN CORPUSCULAR VOLUME 88 fL (79.0-98.0); MONOCYTES # (AUTO) 0.5 K/uL (0.0-1.0); MONOCYTES % (AUTO) 6.1 % (1.7-9.3); NEUTROPHILS # (AUTO) 7.2 K/uL (1.8-7.7); PLATELET COUNT (AUTO) 197 K/uL (130-430); RED BLOOD CELL COUNT(AUTO) 3.06 MIL/uL (4.2-6.2); RED CELL DISTRIBUTION WIDTH 14.4 % (9.0-15.0); WHITE BLOOD COUNT (AUTO) 8.4 K/uL (4.8-10.8)
[2024-02-16] MEDS ORDERED: hydrALAZINE HCL 20 MG/ML VIAL IVP PRN (22:00)
[2024-02-16] MEDS ORDERED: HYDROcodone/ACETAMIN 10-325 MG TAB PO PRN (22:00)
[2024-02-16] MEDS ORDERED: ACETAMINOPHEN 325 MG TABLET PO PRN (22:00)
[2024-02-16] MEDS ORDERED: ONDANSETRON HCL 4 MG/2 ML VIAL IVP PRN (22:00)
[2024-02-16] MEDS ORDERED: D5W 1,000 ML IV PRN (22:00)
[2024-02-16] MEDS ORDERED: DEXTROSE 50% JECT 50 ML DISP.SYRIN IVP PRN (22:00)
[2024-02-16] MEDS ORDERED: BISACODYL 10 MG/SUPPOSITORY RC PRN (22:00)
[2024-02-16] MEDS ORDERED: GLUCOSE (DEXTROSE) ORAL GEL -Adults PO PRN (22:00)
[2024-02-16 22:19] LABS: COVID19 ANTIGEN SOFIA FIA NEGATIVE (NEGATIVE)
[2024-02-16] MEDS: cefTRIAXone 1 GM IVPB PREMIX 50 ML IV ONE (22:20)
[2024-02-16 22:21] LABS: INFLUENZA TYPE A Negative (NEGATIVE); INFLUENZA TYPE B NEGATIVE (NEGATIVE)
[2024-02-16] MEDS: IPRATROPIUM BROM 0.5 MG/2.5 ML VIAL.NEB (ATROVENT) INH SCH (23:00)
[2024-02-16 23:05] LABS: BILIRUBIN,URINE NEGATIVE (NEGATIVE); CLARITY/URINE SL CLOUDY (CLEAR); COLOR,URINE YELLOW (YELLOW); GLUCOSE,URINE NEGATIVE (NEGATIVE); KETONES,URINE NEGATIVE (NEGATIVE); LEUKOCYTE ESTERASE ,URINE 2+ (NEGATIVE); NITRITE, URINE NEGATIVE (NEGATIVE); PROTEIN URINE TRACE (NEGATIVE); UROBILINOGEN,URINE 0.2 (0.2-1.0)
[2024-02-16 23:15] LABS: BLOOD, URINE TRACE (NEGATIVE)
[2024-02-16 23:32] LABS: BACTERIA,URINE MANY /HPF (None Seen); MUCUS,URINE None Seen /LPF (None Seen); RBC,URINE 0-3 /HPF (0-3); WBC,URINE 20-50 /HPF (0-3)
[2024-02-16 23:33] LABS: URINE AMORPHOUS URATE 2+ /HPF (None Seen)
[2024-02-17] VITALS (12 sets, daily range): BP systolic 102–143; PULSE 69–115; RESP 16–20; TEMP 97.4–98.9; O2SAT 97–100
[2024-02-17] MEDS: AZITHROMYCIN 500 MG in NS 250 ML IV ONE (01:20)
[2024-02-17] MEDS: AZITHROMYCIN 500 MG/VIAL (ZITHROMAX) IV ONE (01:21)
[2024-02-17] MEDS: NACL 0.9% 1,000 ML IV SCH (01:24)
[2024-02-17] MEDS: LEVOTHYROXINE SODIUM 0.125 MG TABLET PO SCH (06:28)
[2024-02-17 06:41] LABS: ANION GAP 7 (5-15); CALCIUM 8.3 mg/dL (8.4-11.0); CARBON DIOXIDE 22 mmol/L (23-29); CHLORIDE 108 mmol/L (98-107); CREATININE 2.49 mg/dL (0.55-1.30); GLUCOSE 116 mg/dL (74-106); POTASSIUM 5.2 mmol/L (3.5-5.1); SODIUM SERUM 137 mmol/L (136-145); UREA NITROGEN, BLOOD 50 mg/dL (8-21)
[2024-02-17 06:47] LABS: BASOPHILS % (AUTO) 0.3 % (0.0-2.0); HEMOGLOBIN 8.4 g/dL (12.0-16.0); LYMPHOCYTES # (AUTO) 1.3 K/uL (1.0-5.5); MEAN CORPUSCULAR HEMOGLOBIN 29 pg (27-31); MEAN CORPUSCULAR HGB CONC 32 % (32-36); MEAN CORPUSCULAR VOLUME 90 fL (79.0-98.0); MONOCYTES # (AUTO) 0.7 K/uL (0.0-1.0); NEUTROPHILS % (AUTO) 81.7 % (40.0-70.0); PLATELET COUNT (AUTO) 171 K/uL (130-430); RED CELL DISTRIBUTION WIDTH 14.1 % (9.0-15.0); WHITE BLOOD COUNT (AUTO) 11.1 K/uL (4.8-10.8)
[2024-02-17] MEDS: FUROSEMIDE 40 MG TABLET PO SCH (08:31)
[2024-02-17] MEDS: DABIGATRAN ETEXILATE MESYLATE 75 MG CAPSULE PO SCH (08:32)
[2024-02-17] MEDS: SILDENAFIL CITRATE 20 MG TABLET PO SCH (08:32)
[2024-02-17] MEDS: PREGABALIN 25 MG CAPSULE (LYRICA) PO SCH (08:32)
[2024-02-17] MEDS: DOCUSATE SODIUM 100 MG CAPSULE PO SCH (08:33)
[2024-02-17] MEDS ORDERED: HEPARIN SODIUM,PORCINE 5,000 UNITS/ML VIAL SUBCUT SCH (09:00)
[2024-02-17] MEDS: SODIUM ZIRCONIUM CYCLOSILICATE 10 GM POWD.PACK PO ONE (13:28)
[2024-02-17] MEDS: ALBUTEROL SULFATE 0.083% 2.5 MG/3 ML VIAL.NEB INH PRN (20:21)
[2024-02-17] MEDS: ATORVASTATIN 20 MG TABLET PO SCH (21:28)
[2024-02-17] MEDS: traZODone HCL 50 MG TABLET (DESYREL) PO SCH (21:36)
[2024-02-17] MEDS: cefTRIAXone 1 GM IVPB PREMIX 50 ML IV SCH (21:38)
[2024-02-17] MEDS ORDERED: cefTRIAXone 1 GM IVPB PREMIX 50 ML IV SCH (22:00)
[2024-02-17] MEDS ORDERED: AZITHROMYCIN 500 MG in NS 250 ML IV SCH (22:00)
[2024-02-17] MEDS ORDERED: CEFTRIAXONE SOD 1 GM/ D5W 50 ML IV SCH (22:00)
[2024-02-17] MEDS ORDERED: AZITHROMYCIN 500 MG/VIAL (ZITHROMAX) IV SCH (23:00)
[2024-02-17] MEDS: AZITHROMYCIN 500 MG in NS 250 ML IV SCH (23:10)
[2024-02-18] VITALS (10 sets, daily range): BP systolic 116–135; PULSE 79–99; RESP 15–16; TEMP 97.6–98.5; O2SAT 94–100
[2024-02-18 06:38] LABS: BASOPHILS % (AUTO) 0.8 % (0.0-2.0); EOSINOPHILS # (AUTO) 0.1 K/uL (0.0-0.4); EOSINOPHILS % (AUTO) 1.3 % (0.0-4.0); LYMPHOCYTES # (AUTO) 0.9 K/uL (1.0-5.5); MEAN CORPUSCULAR HEMOGLOBIN 29 pg (27-31); MEAN CORPUSCULAR HGB CONC 32 % (32-36); MEAN CORPUSCULAR VOLUME 90 fL (79.0-98.0); MONOCYTES # (AUTO) 0.6 K/uL (0.0-1.0); MONOCYTES % (AUTO) 12.6 % (1.7-9.3); NEUTROPHILS # (AUTO) 3.3 K/uL (1.8-7.7); NEUTROPHILS % (AUTO) 67.3 % (40.0-70.0); PLATELET COUNT (AUTO) 159 K/uL (130-430); RED BLOOD CELL COUNT(AUTO) 3.12 MIL/uL (4.2-6.2); RED CELL DISTRIBUTION WIDTH 14.5 % (9.0-15.0)
[2024-02-18 08:13] LABS: ALANINE AMINOTRANSFERASE 7 U/L (12-78); ALBUMIN 2.3 g/dL (3.4-4.8); ANION GAP 6 (5-15); ASPARTATE AMINOTRANSFERASE 11 U/L (10-37); CARBON DIOXIDE 23 mmol/L (23-29); CHLORIDE 106 mmol/L (98-107); CREATININE 2.45 mg/dL (0.55-1.30); GLUCOSE 103 mg/dL (74-106); PHOSPHORUS 4.5 mg/dL (2.7-4.5); POTASSIUM 4.2 mmol/L (3.5-5.1); SODIUM SERUM 135 mmol/L (136-145); TOTAL BILIRUBIN 0.4 mg/dL (0.0-1.0); TOTAL PROTEIN, SERUM 8.4 g/dL (6.4-8.3); UREA NITROGEN, BLOOD 47 mg/dL (8-21)
[2024-02-18] MEDS: INSULIN REGULAR, HUMAN 100 UNITS/ML, 3 ML VIAL (humuLIN R) SUBCUT PRN (12:01)
[2024-02-18] MEDS: EPOETIN ALFA 4,000 UNITS/ML VIAL SUBCUT SCH (17:06)
[2024-02-18] MEDS: SEVELAMER CARBONATE 800 MG TABLET PO SCH (17:12)
[2024-02-18] MEDS: cefTRIAXone 1 GM VIAL ONE (21:51)
[2024-02-18 22:10] LABS: URINE SODIUM, RANDOM 107 mmol/L (40-220)
[2024-02-19] VITALS (10 sets, daily range): BP systolic 101–155; PULSE 68–88; RESP 16–18; TEMP 97.6–98.8; O2SAT 96–100
[2024-02-19 04:40] LABS: BASOPHILS % (AUTO) 0.5 % (0.0-2.0); EOSINOPHILS # (AUTO) 0.1 K/uL (0.0-0.4); EOSINOPHILS % (AUTO) 2.1 % (0.0-4.0); HEMOGLOBIN 8.4 g/dL (12.0-16.0); LYMPHOCYTES # (AUTO) 0.8 K/uL (1.0-5.5); MEAN CORPUSCULAR HEMOGLOBIN 30 pg (27-31); MEAN CORPUSCULAR HGB CONC 34 % (32-36); MEAN CORPUSCULAR VOLUME 89 fL (79.0-98.0); MONOCYTES # (AUTO) 0.6 K/uL (0.0-1.0); MONOCYTES % (AUTO) 12.5 % (1.7-9.3); NEUTROPHILS % (AUTO) 66.9 % (40.0-70.0); PLATELET COUNT (AUTO) 147 K/uL (130-430); RED CELL DISTRIBUTION WIDTH 14.1 % (9.0-15.0); WHITE BLOOD COUNT (AUTO) 4.4 K/uL (4.8-10.8)
[2024-02-19 04:59] LABS: ALANINE AMINOTRANSFERASE 7 U/L (12-78); ALBUMIN 2.2 g/dL (3.4-4.8); ANION GAP 6 (5-15); ASPARTATE AMINOTRANSFERASE 12 U/L (10-37); CALCIUM 8.7 mg/dL (8.4-11.0); CARBON DIOXIDE 23 mmol/L (23-29); CHLORIDE 109 mmol/L (98-107); CREATININE 2.31 mg/dL (0.55-1.30); GLUCOSE 67 mg/dL (74-106); POTASSIUM 4.2 mmol/L (3.5-5.1); SODIUM SERUM 138 mmol/L (136-145); TOTAL BILIRUBIN 0.3 mg/dL (0.0-1.0); TOTAL PROTEIN, SERUM 7.9 g/dL (6.4-8.3); UREA NITROGEN, BLOOD 42 mg/dL (8-21)
[2024-02-19] MEDS ORDERED: AUG875 PO ×2 (12:14→16:29)
[2024-02-19] MEDS ORDERED: CEFTRIAXONE SOD 1 GM/ D5W 50 ML IV SCH (21:00)
[2024-02-20 12:10] LABS: CREATININE, URINE 23.3 mg/dL (Not Estab.); MICROALBUMIN URINE RANDOM 81.9 ug/mL (Not Estab.)
== END 2024-02-19 19:55 | DRG 871 ==
LOC: SED 19:13 → STU 21:52
PROVIDERS: ADMIT Student in an Organized Health Care Education/Training Program; ATTEND Student in an Organized Health Care Education/Training Program
DX: A41.9 Sepsis, unspecified organism (principal); E43 Unspecified severe protein-calorie malnutrition; J18.9 Pneumonia, unspecified organism; N17.0 Acute kidney failure with tubular necrosis; J96.01 Acute respiratory failure with hypoxia; E87.1 Hypo-osmolality and hyponatremia; I13.0 Hypertensive heart and chronic kidney disease with heart failure and stage 1 through stage 4 chronic kidney disease, or unspecified chronic kidney disease; N18.4 Chronic kidney disease, stage 4 (severe); I50.32 Chronic diastolic (congestive) heart failure; N13.6 Pyonephrosis; J44.0 Chronic obstructive pulmonary disease with (acute) lower respiratory infection; E11.40 Type 2 diabetes mellitus with diabetic neuropathy, unspecified; E03.9 Hypothyroidism, unspecified; Y95 Nosocomial condition; F41.9 Anxiety disorder, unspecified; I65.23 Occlusion and stenosis of bilateral carotid arteries; E87.5 Hyperkalemia; F32.A Depression, unspecified; I48.0 Paroxysmal atrial fibrillation; D63.1 Anemia in chronic kidney disease; E11.22 Type 2 diabetes mellitus with diabetic chronic kidney disease; Z20.822 Contact with and (suspected) exposure to COVID-19; Z87.442 Personal history of urinary calculi; Z79.4 Long term (current) use of insulin; Z68.27 Body mass index [BMI] 27.0-27.9, adult; B96.29 Other Escherichia coli [E. coli] as the cause of diseases classified elsewhere
CPT/HCPCS: 36415; 71045; 76770; 80048; 80053; 80076; 81000; 81001; 81015; 82043; 82570; 82948; 83605; 83735; 83880; 83930; 83935; 84100; 84302; 84484; 84550; 85025; 87040; 87081; 87086; 87186; 94640; 94760; 96365; 97110-GP; 97116-GP; 97530-GP; 99291; G0378; J0456; J0696; J0885; J1815; J7050; J7060

== ENCOUNTER 2024-04-18 21:05 | Inpatient (IN) | payer OTHER, MEDICAID ==
[~2024-04-18] VITALS: Ht 157.5 cm; Wt 49.5 kg
[~2024-04-18 21:05] MED LIST changes: -APIX2.5T PO; +AUG875 PO; +DABI150C PO; -ERTA1VIA3 INJ; +FURO-149 PO; -FURO-150 PO; -HYDR-3917 PO; +SILD25TA10 PO; -SODI10PO PO
[2024-04-18 21:18] VITALS: BP_SYST 122; PULSE 90; RESP 16; TEMP 98.1; O2SAT 98
[2024-04-18 22:11] LABS: BASOPHILS % (AUTO) 0.5 % (0.0-2.0); EOSINOPHILS % (AUTO) 0.4 % (0.0-4.0); HEMATOCRIT 26.7 % (36-48); HEMOGLOBIN 9.1 g/dL (12.0-16.0); LYMPHOCYTES # (AUTO) 0.6 K/uL (1.0-5.5); LYMPHOCYTES % (AUTO) 13.8 % (20.5-51.5); MEAN CORPUSCULAR HEMOGLOBIN 29 pg (27-31); MEAN CORPUSCULAR HGB CONC 34 % (32-36); MEAN CORPUSCULAR VOLUME 87 fL (79.0-98.0); MONOCYTES # (AUTO) 0.5 K/uL (0.0-1.0); MONOCYTES % (AUTO) 11.6 % (1.7-9.3); NEUTROPHILS # (AUTO) 3.3 K/uL (1.8-7.7); NEUTROPHILS % (AUTO) 73.7 % (40.0-70.0); PLATELET COUNT (AUTO) 111 K/uL (130-430); RED BLOOD CELL COUNT(AUTO) 3.08 MIL/uL (4.2-6.2); RED CELL DISTRIBUTION WIDTH 14.6 % (9.0-15.0); WHITE BLOOD COUNT (AUTO) 4.5 K/uL (4.8-10.8)
[2024-04-18 22:18] LABS: INR 1.5 (0.8-1.2); PROTHROMBIN TIME 15.7 SECS (9.5-12.5)
[2024-04-18 22:28] LABS: ALBUMIN 2.7 g/dL (3.4-4.8); ANION GAP 11 (5-15); ASPARTATE AMINOTRANSFERASE 15 U/L (10-37); BILIRUBIN,DIRECT 0.1 mg/dL (0.0-0.3); CALCIUM 8.4 mg/dL (8.4-11.0); CARBON DIOXIDE 26 mmol/L (23-29); CHLORIDE 97 mmol/L (98-107); CREATININE 3.25 mg/dL (0.55-1.30); GLUCOSE 142 mg/dL (74-106); POTASSIUM 4.2 mmol/L (3.5-5.1); SODIUM SERUM 134 mmol/L (136-145); TOTAL BILIRUBIN 0.3 mg/dL (0.0-1.0); TOTAL PROTEIN, SERUM 9.1 g/dL (6.4-8.3)
[2024-04-18 22:31] LABS: UREA NITROGEN, BLOOD 112 mg/dL (8-21)
[2024-04-18 22:41] LABS: ALANINE AMINOTRANSFERASE 10 U/L (12-78)
[2024-04-18] MEDS: NACL 0.9% 1,000 ML IV ONE (23:27)
[2024-04-18] MEDS ORDERED: GLYC30DR4 EACH EYE (23:58)
[2024-04-18] MEDS ORDERED: AMLO5TAB4 PO (23:58)
[2024-04-19 00:02] LABS: BILIRUBIN,URINE NEGATIVE (NEGATIVE); BLOOD, URINE 3+ (NEGATIVE); COLOR,URINE YELLOW (YELLOW); GLUCOSE,URINE NEGATIVE (NEGATIVE); KETONES,URINE NEGATIVE (NEGATIVE); LEUKOCYTE ESTERASE ,URINE 2+ (NEGATIVE); NITRITE, URINE NEGATIVE (NEGATIVE); PROTEIN URINE NEGATIVE (NEGATIVE); UROBILINOGEN,URINE 0.2 (0.2-1.0)
[2024-04-19 00:12] LABS: CLARITY/URINE SLIGHTLY CLOUDY (CLEAR)
[2024-04-19 00:14] LABS: BACTERIA,URINE MANY /HPF (None Seen); WBC,URINE 80-100 /HPF (0-3)
[2024-04-19] MEDS: NACL 0.9% 1,000 ML IV SCH (00:45)
[2024-04-19] MEDS ORDERED: cefTRIAXone 1 GM VIAL ONE (02:12)
[2024-04-19] MEDS: cefTRIAXone 1 GM in D5W 50 ML IV ONE (02:12)
[2024-04-19 06:00] LABS: BASOPHILS % (AUTO) 0.5 % (0.0-2.0); EOSINOPHILS % (AUTO) 0.8 % (0.0-4.0); HEMATOCRIT 25.9 % (36-48); HEMOGLOBIN 8.4 g/dL (12.0-16.0); LYMPHOCYTES # (AUTO) 1.2 K/uL (1.0-5.5); LYMPHOCYTES % (AUTO) 28.7 % (20.5-51.5); MEAN CORPUSCULAR HEMOGLOBIN 29 pg (27-31); MEAN CORPUSCULAR HGB CONC 32 % (32-36); MEAN CORPUSCULAR VOLUME 88 fL (79.0-98.0); MONOCYTES # (AUTO) 0.6 K/uL (0.0-1.0); MONOCYTES % (AUTO) 13.7 % (1.7-9.3); NEUTROPHILS # (AUTO) 2.3 K/uL (1.8-7.7); NEUTROPHILS % (AUTO) 56.3 % (40.0-70.0); PLATELET COUNT (AUTO) 113 K/uL (130-430); RED BLOOD CELL COUNT(AUTO) 2.94 MIL/uL (4.2-6.2); RED CELL DISTRIBUTION WIDTH 14.5 % (9.0-15.0)
[2024-04-19 06:05] LABS: ANION GAP 12 (5-15); CALCIUM 8.3 mg/dL (8.4-11.0); CARBON DIOXIDE 24 mmol/L (23-29); CHLORIDE 102 mmol/L (98-107); CREATININE 3.09 mg/dL (0.55-1.30); GLUCOSE 119 mg/dL (74-106); SODIUM SERUM 138 mmol/L (136-145)
[2024-04-19 06:44] LABS: UREA NITROGEN, BLOOD 101 mg/dL (8-21)
[2024-04-19] MEDS: PANTOPRAZOLE SODIUM 40 MG/VIAL (PROTONIX) IVP SCH (09:01)
[2024-04-19 09:15] VITALS: BP_SYST 98; PULSE 74; RESP 16; TEMP 97.9
[2024-04-19] MEDS ORDERED: BISACODYL 10 MG/SUPPOSITORY RC PRN (10:00)
[2024-04-19] MEDS: hydrALAZINE HCL 10 MG TABLET PO SCH (10:30)
[2024-04-19] MEDS: amLODIPine BESYLATE 5 MG TABLET PO ONE (11:00)
[2024-04-19 12:00] VITALS: BP_SYST 111; PULSE 76; RESP 17; TEMP 98.1; O2SAT 98
[2024-04-19] MEDS: PREGABALIN 25 MG CAPSULE (LYRICA) PO ONE (13:34)
[2024-04-19] MEDS: LEVOTHYROXINE SODIUM 0.125 MG TABLET PO ONE (13:34)
[2024-04-19] MEDS: FUROSEMIDE 40 MG TABLET PO ONE (13:35)
[2024-04-19 16:06] LABS: HEMATOCRIT 23.6 % (36-48); HEMOGLOBIN 7.9 g/dL (12.0-16.0); MEAN CORPUSCULAR HEMOGLOBIN 29 pg (27-31); MEAN CORPUSCULAR HGB CONC 34 % (32-36); MEAN CORPUSCULAR VOLUME 87 fL (79.0-98.0); RED CELL DISTRIBUTION WIDTH 14.4 % (9.0-15.0)
[2024-04-19 16:21] LABS: PLATELET COUNT (AUTO) 106 K/uL (130-430); WHITE BLOOD COUNT (AUTO) 2.5 K/uL (4.8-10.8)
[2024-04-19 16:29] LABS: BAND % (MANUAL) 0 % (0-6); BASOPHILS % (MANUAL) 0 % (0-2); EOSINOPHILS % (MANUAL) 0 % (0-7); LYMPHOCYTES % (MANUAL) 40 % (20-46); MONOCYTES % (MANUAL) 15 % (0-11); OVALOCYTES FEW; PLATELET ESTIMATE DECREASED (ADEQUATE)
[2024-04-19 16:49] VITALS: BP_SYST 107; PULSE 75; RESP 17; TEMP 97.8; O2SAT 97
[2024-04-19] MEDS: INSULIN REGULAR, HUMAN 100 UNITS/ML, 3 ML VIAL (humuLIN R) SUBCUT PRN (18:32)
[2024-04-19 20:00] VITALS: BP_SYST 135; PULSE 76; RESP 16; TEMP 97.2; O2SAT 99
[2024-04-19 20:30] VITALS: O2SAT 99
[2024-04-19] MEDS ORDERED: FUROSEMIDE 40 MG TABLET PO SCH (21:00)
[2024-04-19] MEDS: ATORVASTATIN 20 MG TABLET PO SCH (21:29)
[2024-04-20 01:45] VITALS: BP_SYST 132; PULSE 81; RESP 16; TEMP 96.9; O2SAT 99
[2024-04-20] MEDS: LEVOTHYROXINE SODIUM 0.125 MG TABLET PO SCH (05:28)
[2024-04-20 06:32] LABS: BASOPHILS % (AUTO) 0.7 % (0.0-2.0); EOSINOPHILS # (AUTO) 0.1 K/uL (0.0-0.4); EOSINOPHILS % (AUTO) 2.1 % (0.0-4.0); HEMATOCRIT 23.7 % (36-48); HEMOGLOBIN 7.8 g/dL (12.0-16.0); LYMPHOCYTES % (AUTO) 34.1 % (20.5-51.5); MEAN CORPUSCULAR HEMOGLOBIN 29 pg (27-31); MEAN CORPUSCULAR HGB CONC 33 % (32-36); MEAN CORPUSCULAR VOLUME 88 fL (79.0-98.0); MONOCYTES # (AUTO) 0.5 K/uL (0.0-1.0); MONOCYTES % (AUTO) 17.4 % (1.7-9.3); NEUTROPHILS # (AUTO) 1.3 K/uL (1.8-7.7); PLATELET COUNT (AUTO) 105 K/uL (130-430); RED BLOOD CELL COUNT(AUTO) 2.71 MIL/uL (4.2-6.2); RED CELL DISTRIBUTION WIDTH 14.8 % (9.0-15.0); WHITE BLOOD COUNT (AUTO) 2.8 K/uL (4.8-10.8)
[2024-04-20 07:14] LABS: ALANINE AMINOTRANSFERASE 7 U/L (12-78); ALBUMIN 2.4 g/dL (3.4-4.8); ANION GAP 8 (5-15); ASPARTATE AMINOTRANSFERASE 16 U/L (10-37); CALCIUM 8.8 mg/dL (8.4-11.0); CARBON DIOXIDE 27 mmol/L (23-29); CHLORIDE 108 mmol/L (98-107); CREATININE 2.48 mg/dL (0.55-1.30); GLUCOSE 104 mg/dL (74-106); POTASSIUM 3.8 mmol/L (3.5-5.1); SODIUM SERUM 143 mmol/L (136-145); TOTAL BILIRUBIN 0.3 mg/dL (0.0-1.0); TOTAL PROTEIN, SERUM 8.5 g/dL (6.4-8.3); UREA NITROGEN, BLOOD 80 mg/dL (8-21)
[2024-04-20] MEDS: MIDAZOLAM HCL 5 MG/5 ML VIAL ONE (07:19)
[2024-04-20] MEDS: MEPERIDINE 100 MG INJ. 100 MG/ML VIAL ONE (07:19)
[2024-04-20 07:58] LABS: NEUTROPHILS % (AUTO) 45.7 % (40.0-70.0)
[2024-04-20 08:03] VITALS: BP_SYST 135; PULSE 84; RESP 16; TEMP 97.7; O2SAT 98
[2024-04-20] MEDS: PREGABALIN 25 MG CAPSULE (LYRICA) PO SCH (10:00)
[2024-04-20] MEDS: amLODIPine BESYLATE 5 MG TABLET PO SCH (10:01)
[2024-04-20] MEDS: CHOLECALCIFEROL (VITAMIN D-3) 400 UNIT TABLET PO SCH (10:04)
[2024-04-20] MEDS: SOD FERRIC GLUC COMPLEX/SUC 125 MG in NS 100 ML IV SCH (12:00)
[2024-04-20 13:23] VITALS: BP_SYST 130; PULSE 72; RESP 16; TEMP 98.3; O2SAT 97
[2024-04-20] MEDS: cefTRIAXone 1 GM in D5W 50 ML IV SCH (14:10)
[2024-04-20 16:00] VITALS: BP_SYST 126; PULSE 85; RESP 16; TEMP 98.1; O2SAT 98
[2024-04-20] MEDS: BISACODYL 5 MG TABLET.DR (DULCOLAX) PO ONE (18:33)
[2024-04-20 20:00] VITALS: BP_SYST 119; PULSE 72; RESP 17; TEMP 97.8; O2SAT 98
[2024-04-20] MEDS: GOLYTELY / COLYTE SOLUTION 4 LITERS PO ONE (20:42)
[2024-04-20 23:30] VITALS: BP_SYST 85; PULSE 72; RESP 17; TEMP 97.6; O2SAT 96
[2024-04-21] VITALS (9 sets, daily range): BP systolic 85–145; PULSE 69–119; RESP 16–18; TEMP 96.6–98; O2SAT 96–100
[2024-04-21 01:21] LABS: BASOPHILS % (AUTO) 0.5 % (0.0-2.0); EOSINOPHILS % (AUTO) 1.4 % (0.0-4.0); HEMATOCRIT 22.2 % (36-48); HEMOGLOBIN 7.5 g/dL (12.0-16.0); LYMPHOCYTES # (AUTO) 0.8 K/uL (1.0-5.5); LYMPHOCYTES % (AUTO) 25.4 % (20.5-51.5); MEAN CORPUSCULAR HEMOGLOBIN 30 pg (27-31); MEAN CORPUSCULAR HGB CONC 34 % (32-36); MEAN CORPUSCULAR VOLUME 88 fL (79.0-98.0); MONOCYTES # (AUTO) 0.4 K/uL (0.0-1.0); NEUTROPHILS # (AUTO) 1.9 K/uL (1.8-7.7); NEUTROPHILS % (AUTO) 58.7 % (40.0-70.0); PLATELET COUNT (AUTO) 101 K/uL (130-430); RED BLOOD CELL COUNT(AUTO) 2.54 MIL/uL (4.2-6.2); RED CELL DISTRIBUTION WIDTH 14.5 % (9.0-15.0); WHITE BLOOD COUNT (AUTO) 3.2 K/uL (4.8-10.8)
[2024-04-21 01:43] LABS: INR 1.3 (0.8-1.2); PROTHROMBIN TIME 13.6 SECS (9.5-12.5)
[2024-04-21] MEDS: NACL 0.9% 1,000 ML IV ONE (05:26)
[2024-04-21 06:38] LABS: BASOPHILS % (AUTO) 0.5 % (0.0-2.0); EOSINOPHILS % (AUTO) 0.9 % (0.0-4.0); HEMATOCRIT 22.1 % (36-48); HEMOGLOBIN 7.2 g/dL (12.0-16.0); LYMPHOCYTES # (AUTO) 0.8 K/uL (1.0-5.5); LYMPHOCYTES % (AUTO) 25.6 % (20.5-51.5); MEAN CORPUSCULAR HEMOGLOBIN 29 pg (27-31); MEAN CORPUSCULAR HGB CONC 33 % (32-36); MEAN CORPUSCULAR VOLUME 89 fL (79.0-98.0); MONOCYTES # (AUTO) 0.3 K/uL (0.0-1.0); MONOCYTES % (AUTO) 9.7 % (1.7-9.3); NEUTROPHILS # (AUTO) 2.1 K/uL (1.8-7.7); NEUTROPHILS % (AUTO) 63.3 % (40.0-70.0); PLATELET COUNT (AUTO) 104 K/uL (130-430); RED BLOOD CELL COUNT(AUTO) 2.49 MIL/uL (4.2-6.2); RED CELL DISTRIBUTION WIDTH 14.6 % (9.0-15.0); WHITE BLOOD COUNT (AUTO) 3.3 K/uL (4.8-10.8)
[2024-04-21 06:54] LABS: INR 1.2 (0.8-1.2); PROTHROMBIN TIME 13.1 SECS (9.5-12.5)
[2024-04-21 07:01] LABS: ALBUMIN 2.2 g/dL (3.4-4.8); ANION GAP 10 (5-15); ASPARTATE AMINOTRANSFERASE 14 U/L (10-37); CALCIUM 8.1 mg/dL (8.4-11.0); CARBON DIOXIDE 24 mmol/L (23-29); CHLORIDE 110 mmol/L (98-107); CREATININE 1.99 mg/dL (0.55-1.30); GLUCOSE 112 mg/dL (74-106); POTASSIUM 3.7 mmol/L (3.5-5.1); SODIUM SERUM 144 mmol/L (136-145); TOTAL BILIRUBIN 0.2 mg/dL (0.0-1.0); TOTAL PROTEIN, SERUM 7.8 g/dL (6.4-8.3); UREA NITROGEN, BLOOD 57 mg/dL (8-21)
[2024-04-21] MEDS: MEPERIDINE 100 MG INJ. 100 MG/ML VIAL ONE (07:01)
[2024-04-21] MEDS: SIMETHICONE 40 MG/0.6 ML ML ONE (07:01)
[2024-04-21] MEDS: MIDAZOLAM HCL 5 MG/5 ML VIAL ONE (07:01)
[2024-04-21 07:10] LABS: ALANINE AMINOTRANSFERASE 5 U/L (12-78)
[2024-04-21] MEDS: CYANOCOBALAMIN (VITAMIN B-12) 1,000 MCG TABLET PO SCH (09:00)
[2024-04-21] MEDS: NEPHROVITE, (FOLIC ACID/VITAMIN B COMP W-C 1 TAB) PO SCH (09:00)
[2024-04-21] MEDS ORDERED: HEPARIN SODIUM,PORCINE 5,000 UNITS/ML VIAL SUBCUT SCH (09:00)
[2024-04-21] MEDS: fentaNYL CITRATE/PF 100 MCG/2 ML AMP ONE (12:19)
[2024-04-21] MEDS ORDERED: LORazepam 2 MG/ML VIAL IVP ONE (19:00)
[2024-04-21 21:25] LABS: HEMATOCRIT 29.7 % (36-48); HEMOGLOBIN 10.2 g/dL (12.0-16.0)
[2024-04-22 01:23] VITALS: BP_SYST 147; PULSE 89; RESP 18; TEMP 98; O2SAT 99
[2024-04-22 05:58] LABS: BASOPHILS % (AUTO) 0.6 % (0.0-2.0); EOSINOPHILS # (AUTO) 0.1 K/uL (0.0-0.4); EOSINOPHILS % (AUTO) 2.5 % (0.0-4.0); HEMATOCRIT 30.1 % (36-48); HEMOGLOBIN 9.9 g/dL (12.0-16.0); LYMPHOCYTES # (AUTO) 0.9 K/uL (1.0-5.5); LYMPHOCYTES % (AUTO) 24.1 % (20.5-51.5); MEAN CORPUSCULAR HEMOGLOBIN 29 pg (27-31); MEAN CORPUSCULAR HGB CONC 33 % (32-36); MEAN CORPUSCULAR VOLUME 88 fL (79.0-98.0); MONOCYTES # (AUTO) 0.4 K/uL (0.0-1.0); MONOCYTES % (AUTO) 11.2 % (1.7-9.3); NEUTROPHILS # (AUTO) 2.2 K/uL (1.8-7.7); NEUTROPHILS % (AUTO) 61.6 % (40.0-70.0); PLATELET COUNT (AUTO) 110 K/uL (130-430); RED BLOOD CELL COUNT(AUTO) 3.42 MIL/uL (4.2-6.2); RED CELL DISTRIBUTION WIDTH 14.6 % (9.0-15.0); WHITE BLOOD COUNT (AUTO) 3.6 K/uL (4.8-10.8)
[2024-04-22 06:13] LABS: ANION GAP 5 (5-15); CARBON DIOXIDE 26 mmol/L (23-29); CHLORIDE 110 mmol/L (98-107); CREATININE 1.79 mg/dL (0.55-1.30); GLUCOSE 96 mg/dL (74-106); POTASSIUM 3.5 mmol/L (3.5-5.1); SODIUM SERUM 141 mmol/L (136-145); UREA NITROGEN, BLOOD 36 mg/dL (8-21)
[2024-04-22 08:00] VITALS: BP_SYST 143; PULSE 75; RESP 16; TEMP 97.6; O2SAT 97
[2024-04-22 09:00] VITALS: O2SAT 97
[2024-04-22 09:07] LABS: HEPATITIS A AB, IgM Negative (Negative); HEPATITIS B CORE AB, IgM Negative (Negative); HEPATITIS B SURFACE AG Negative (Negative); HEPATITIS C VIRUS AB Non Reactive (Non Reactive)
[2024-04-22] MEDS: EPOETIN ALFA-EPBX 4,000 UNITS/ML VIAL SUBCUT SCH (10:05)
[2024-04-22 11:08] LABS: AFP, TUMOR MARKER <1.8 ng/mL (0.0-8.7); ANTI NUCLEAR AB WITH REFLEX Negative (Negative)
[2024-04-22 13:49] VITALS: BP_SYST 143; PULSE 75; RESP 16; TEMP 97.6; O2SAT 97
[2024-04-22] MEDS ORDERED: NEPH PO (15:15)
[2024-04-22 17:52] VITALS: BP_SYST 149; PULSE 59; RESP 16; TEMP 97.4; O2SAT 94
[2024-04-26 13:07] LABS: ATYPICAL pANCA <1:20 titer (Neg:<1:20); CYTOPLASMIC (C-ANCA) <1:20 titer (Neg:<1:20); CYTOPLASMIC (P-ANCA) <1:20 titer (Neg:<1:20)
== END 2024-04-22 17:40 | DRG 393 ==
LOC: SED 21:05 → SMU 23:39 → STU 04-21 01:52
PROVIDERS: ADMIT General Practice; ATTEND General Practice
PROC: 30233N1 Transfusion of Nonautologous Red Blood Cells into Peripheral Vein, Percutaneous Approach (ICD-10-PCS; 2024-04-21)
PROC: 0DB78ZX Excision of Stomach, Pylorus, Via Natural or Artificial Opening Endoscopic, Diagnostic (ICD-10-PCS; principal; 2024-04-21 10:00)
PROC: 0DBM8ZZ Excision of Descending Colon, Via Natural or Artificial Opening Endoscopic (ICD-10-PCS; 2024-04-21 10:00)
DX: K64.8 Other hemorrhoids (principal); N17.0 Acute kidney failure with tubular necrosis; D62 Acute posthemorrhagic anemia; E44.0 Moderate protein-calorie malnutrition; E87.1 Hypo-osmolality and hyponatremia; D68.9 Coagulation defect, unspecified; I13.0 Hypertensive heart and chronic kidney disease with heart failure and stage 1 through stage 4 chronic kidney disease, or unspecified chronic kidney disease; N13.6 Pyonephrosis; Z68.1 Body mass index [BMI] 19.9 or less, adult; D61.818 Other pancytopenia; K63.5 Polyp of colon; E88.09 Other disorders of plasma-protein metabolism, not elsewhere classified; J44.9 Chronic obstructive pulmonary disease, unspecified; E03.9 Hypothyroidism, unspecified; E78.5 Hyperlipidemia, unspecified; I48.91 Unspecified atrial fibrillation; I48.0 Paroxysmal atrial fibrillation; K44.9 Diaphragmatic hernia without obstruction or gangrene; K29.70 Gastritis, unspecified, without bleeding; K80.20 Calculus of gallbladder without cholecystitis without obstruction; I50.9 Heart failure, unspecified; E11.22 Type 2 diabetes mellitus with diabetic chronic kidney disease; N18.30 Chronic kidney disease, stage 3 unspecified; Z79.4 Long term (current) use of insulin; Z79.899 Other long term (current) drug therapy; Z79.01 Long term (current) use of anticoagulants; K57.30 Diverticulosis of large intestine without perforation or abscess without bleeding
CPT/HCPCS: 36415; 43239; 45384; 76700; 80048; 80053; 80074; 80076; 81000; 81001; 81015; 82105; 82948; 83516; 83605; 84484; 85007; 85018; 85025; 85027; 85610; 85730; 86038; 86256; 86886; 86900; 86901; 86920; 87040; 87081; 87086; 88305; 93005; 99291; C1751; G0378; J0696; J2175; J2250; J2470; J2916; J3010; J7030; J7060; P9021; Q5106

== ENCOUNTER 2024-05-21 11:09 | Inpatient (IN) | payer OTHER, MEDICAID ==
[~2024-05-21] VITALS: Ht 157.5 cm; Wt 59.0 kg
[~2024-05-21 11:09] MED LIST changes: +AMLO5TAB4 PO; -AUG875 PO; -DABI150C PO; +GLYC30DR4 EACH EYE; +NEPH PO; -SILD25TA10 PO; -TRAZ-250 PO
[2024-05-21 11:17] VITALS: BP_SYST 97; PULSE 80; RESP 16; TEMP 97.4; O2SAT 95
[2024-05-21 12:02] LABS: BASOPHILS % (AUTO) 0.3 % (0.0-2.0); HEMATOCRIT 33.1 % (36-48); LYMPHOCYTES # (AUTO) 0.7 K/uL (1.0-5.5); LYMPHOCYTES % (AUTO) 8.4 % (20.5-51.5); MEAN CORPUSCULAR HEMOGLOBIN 29 pg (27-31); MEAN CORPUSCULAR HGB CONC 33 % (32-36); MEAN CORPUSCULAR VOLUME 89 fL (79.0-98.0); MONOCYTES # (AUTO) 0.9 K/uL (0.0-1.0); MONOCYTES % (AUTO) 10.3 % (1.7-9.3); NEUTROPHILS # (AUTO) 7.1 K/uL (1.8-7.7); PLATELET COUNT (AUTO) 165 K/uL (130-430); RED BLOOD CELL COUNT(AUTO) 3.74 MIL/uL (4.2-6.2); RED CELL DISTRIBUTION WIDTH 14.3 % (9.0-15.0); WHITE BLOOD COUNT (AUTO) 8.8 K/uL (4.8-10.8)
[2024-05-21 12:31] LABS: ALANINE AMINOTRANSFERASE 12 U/L (12-78); ALBUMIN 2.5 g/dL (3.4-4.8); ASPARTATE AMINOTRANSFERASE 16 U/L (10-37); BILIRUBIN,DIRECT 0.2 mg/dL (0.0-0.3); CREATINE KINASE, TOTAL 10 U/L (26-192); TOTAL BILIRUBIN 0.5 mg/dL (0.0-1.0); TOTAL PROTEIN, SERUM 9.8 g/dL (6.4-8.3)
[2024-05-21 12:48] LABS: INR 1.1 (0.8-1.2); PROTHROMBIN TIME 11.3 SECS (9.5-12.5)
[2024-05-21 14:28] LABS: ANION GAP 16 (5-15); CALCIUM 8.8 mg/dL (8.4-11.0); CARBON DIOXIDE 20 mmol/L (23-29); CHLORIDE 91 mmol/L (98-107); CREATININE 3.21 mg/dL (0.55-1.30); FREE T4 (FREE THYROXINE) 2.8 ng/dL (0.6-1.6); GLUCOSE 195 mg/dL (74-106); POTASSIUM 4.2 mmol/L (3.5-5.1); SODIUM SERUM 127 mmol/L (136-145); UREA NITROGEN, BLOOD 87 mg/dL (8-21)
[2024-05-21] MEDS ORDERED: ONDANSETRON HCL 4 MG/2 ML VIAL IVP PRN (15:00)
[2024-05-21] MEDS ORDERED: HYDROcodone/ACETAMIN 5-325 MG TAB (NORCO/ VICODIN) PO PRN (15:00)
[2024-05-21] MEDS ORDERED: HYDROcodone/ACETAMIN 10-325 MG TAB PO PRN (15:00)
[2024-05-21] MEDS ORDERED: ACETAMINOPHEN 325 MG TABLET PO PRN (15:00)
[2024-05-21] MEDS ORDERED: LORazepam 2 MG/ML VIAL IVP PRN (15:00)
[2024-05-21] MEDS: NS 500 ML IV ONE (15:37)
[2024-05-21] MEDS ORDERED: AMIO100T4 PO (16:06)
[2024-05-21] MEDS ORDERED: PEG15DRO12 EACH EYE (16:06)
[2024-05-21] MEDS ORDERED: DEXTROSE 50% JECT 50 ML DISP.SYRIN IVP PRN (17:00)
[2024-05-21] MEDS ORDERED: GLUCOSE (DEXTROSE) ORAL GEL -Adults PO PRN (17:00)
[2024-05-21] MEDS: NACL 0.9% 1,000 ML IV SCH (17:54)
[2024-05-21 19:20] VITALS: BP_SYST 104; PULSE 89; RESP 17; TEMP 97.7; O2SAT 100
[2024-05-21] MEDS: HEPARIN SODIUM,PORCINE 5,000 UNITS/ML VIAL SUBCUT SCH (21:49)
[2024-05-21] MEDS: DOCUSATE SODIUM 100 MG CAPSULE PO SCH (21:50)
[2024-05-21] MEDS: INSULIN LISPRO SLIDING SCALE 100 UNITS/ML, 3 ML VIAL (humaLOG) SUBCUT PRN (21:55)
[2024-05-21 22:22] VITALS: BP_SYST 104; PULSE 89; RESP 18; TEMP 97.7; O2SAT 100
[2024-05-22 00:11] VITALS: BP_SYST 94; PULSE 87; RESP 18; TEMP 98; O2SAT 99
[2024-05-22] MEDS: LEVOTHYROXINE SODIUM 0.125 MG TABLET PO SCH (06:03)
[2024-05-22 08:35] VITALS: BP_SYST 118; RESP 18; TEMP 97.5; O2SAT 96
[2024-05-22 08:36] LABS: BASOPHILS % (AUTO) 0.3 % (0.0-2.0); EOSINOPHILS % (AUTO) 0.2 % (0.0-4.0); HEMATOCRIT 33.1 % (36-48); LYMPHOCYTES # (AUTO) 0.9 K/uL (1.0-5.5); LYMPHOCYTES % (AUTO) 14.6 % (20.5-51.5); MEAN CORPUSCULAR HEMOGLOBIN 29 pg (27-31); MEAN CORPUSCULAR HGB CONC 33 % (32-36); MEAN CORPUSCULAR VOLUME 88 fL (79.0-98.0); MONOCYTES # (AUTO) 0.8 K/uL (0.0-1.0); MONOCYTES % (AUTO) 12.2 % (1.7-9.3); NEUTROPHILS # (AUTO) 4.6 K/uL (1.8-7.7); NEUTROPHILS % (AUTO) 72.7 % (40.0-70.0); PLATELET COUNT (AUTO) 187 K/uL (130-430); RED BLOOD CELL COUNT(AUTO) 3.75 MIL/uL (4.2-6.2); RED CELL DISTRIBUTION WIDTH 14.6 % (9.0-15.0); WHITE BLOOD COUNT (AUTO) 6.3 K/uL (4.8-10.8)
[2024-05-22 08:56] LABS: ANION GAP 6 (5-15); CALCIUM 9.2 mg/dL (8.4-11.0); CARBON DIOXIDE 28 mmol/L (23-29); CHLORIDE 96 mmol/L (98-107); CREATININE 3.39 mg/dL (0.55-1.30); GLUCOSE 135 mg/dL (74-106); POTASSIUM 4.4 mmol/L (3.5-5.1); SODIUM SERUM 130 mmol/L (136-145); UREA NITROGEN, BLOOD 92 mg/dL (8-21)
[2024-05-22] MEDS ORDERED: BISACODYL 10 MG/SUPPOSITORY RC PRN (09:15)
[2024-05-22] MEDS ORDERED: ACETAMINOPHEN 325 MG TABLET PO PRN (09:15)
[2024-05-22 10:30] VITALS: O2SAT 96
[2024-05-22 13:32] VITALS: BP_SYST 109; PULSE 80; RESP 16; TEMP 98; O2SAT 99
[2024-05-22 16:35] VITALS: BP_SYST 110; PULSE 81; RESP 16; TEMP 98.3; O2SAT 98
[2024-05-22 20:00] VITALS: BP_SYST 102; PULSE 85; RESP 18; TEMP 98.2; O2SAT 99
[2024-05-23] VITALS: BP_SYST 115; PULSE 70; RESP 18; TEMP 97.3; O2SAT 97
[2024-05-23] MEDS: LEVOTHYROXINE SODIUM 0.125 MG TABLET PO SCH (05:43)
[2024-05-23 08:18] LABS: BASOPHILS % (AUTO) 0.7 % (0.0-2.0); EOSINOPHILS % (AUTO) 0.6 % (0.0-4.0); LYMPHOCYTES # (AUTO) 0.7 K/uL (1.0-5.5); LYMPHOCYTES % (AUTO) 17.7 % (20.5-51.5); MEAN CORPUSCULAR HEMOGLOBIN 29 pg (27-31); MEAN CORPUSCULAR HGB CONC 33 % (32-36); MEAN CORPUSCULAR VOLUME 87 fL (79.0-98.0); MONOCYTES # (AUTO) 0.7 K/uL (0.0-1.0); MONOCYTES % (AUTO) 15.9 % (1.7-9.3); NEUTROPHILS # (AUTO) 2.7 K/uL (1.8-7.7); NEUTROPHILS % (AUTO) 65.1 % (40.0-70.0); PLATELET COUNT (AUTO) 158 K/uL (130-430); RED BLOOD CELL COUNT(AUTO) 3.78 MIL/uL (4.2-6.2); RED CELL DISTRIBUTION WIDTH 14.6 % (9.0-15.0); WHITE BLOOD COUNT (AUTO) 4.2 K/uL (4.8-10.8)
[2024-05-23 08:30] VITALS: BP_SYST 117; PULSE 70; RESP 18; TEMP 97.9; O2SAT 96
[2024-05-23 09:02] LABS: ANION GAP 8 (5-15); CALCIUM 9.1 mg/dL (8.4-11.0); CARBON DIOXIDE 25 mmol/L (23-29); CHLORIDE 99 mmol/L (98-107); CREATININE 3.24 mg/dL (0.55-1.30); GLUCOSE 130 mg/dL (74-106); SODIUM SERUM 132 mmol/L (136-145); UREA NITROGEN, BLOOD 92 mg/dL (8-21)
[2024-05-23] MEDS: AMIODARONE HCL 200 MG TABLET PO SCH (09:34)
[2024-05-23] MEDS: amLODIPine BESYLATE 5 MG TABLET PO SCH (09:35)
[2024-05-23 12:00] VITALS: BP_SYST 110; PULSE 70; RESP 16; TEMP 97.3; O2SAT 99
[2024-05-23 12:39] VITALS: O2SAT 99
[2024-05-23] MEDS ORDERED: LEVO125T PO (12:55)
[2024-05-23] MEDS ORDERED: FURO-149 PO (12:57)
[2024-05-23 15:26] VITALS: BP_SYST 102; PULSE 69; RESP 16; TEMP 97.1; O2SAT 99
== END 2024-05-23 15:49 | DRG 640 ==
LOC: SED 11:09 → SMU 14:58
PROVIDERS: ADMIT Internal Medicine; ATTEND Internal Medicine
DX: E87.1 Hypo-osmolality and hyponatremia (principal); E43 Unspecified severe protein-calorie malnutrition; N17.9 Acute kidney failure, unspecified; I13.0 Hypertensive heart and chronic kidney disease with heart failure and stage 1 through stage 4 chronic kidney disease, or unspecified chronic kidney disease; I50.32 Chronic diastolic (congestive) heart failure; E11.22 Type 2 diabetes mellitus with diabetic chronic kidney disease; E03.9 Hypothyroidism, unspecified; I48.0 Paroxysmal atrial fibrillation; N18.30 Chronic kidney disease, stage 3 unspecified; E86.1 Hypovolemia; Z79.899 Other long term (current) drug therapy; Z88.8 Allergy status to other drugs, medicaments and biological substances; Z68.23 Body mass index [BMI] 23.0-23.9, adult
CPT/HCPCS: 36415; 71045; 76770; 80048; 80076; 82533; 82550; 83605; 84439; 84484; 85025; 85610; 85730; 87081; 93005; 99285; J1644; J7030